=== PATIENT | female | born 1940 | race Caucasian/White ===

== ENCOUNTER 2023-08-22 17:20 | Emergency (ER) | payer OTHER, SELFPAY ==
[2023-08-22 17:22] VITALS: BP 191/62
[2023-08-22 17:40] VITALS: BP 191/62
--- NOTE | 2023-08-22 17:40 | ED.GENMED ---
History of Present Illness
General
Chief Complaint: Weakness
Time Seen by Provider: 08/22/23 17:40
Travel History
Have you had any contact with someone who has COVID-19?: No
Do you have any symptoms of coronavirus? Fever > 100 degrees, chills, cough, shortness of breath, sore throat, loss of taste or smell, muscle aches, or headache?: No
History of Present Illness
History of Present Illness:
83-year-old female with history of insulin-dependent diabetes, COPD, CHF, hypertension, hyperlipidemia, and chronic kidney disease presents to the emergency department for evaluation of leg weakness ongoing for the past 7 days. She also notes
diarrhea and malaise beginning yesterday. Denies any bloody diarrhea or vomiting. She states the leg symptoms are comparable to when she had statin induced myopathy several years ago, states she was unaware that her primary care physician placed
her back on a statin medication, she discontinued taking this 4 days ago. No ill contacts. Denies chest pain or dyspnea
Past History
Past History
ED Past Medical History: CAD, COPD, CVA, IDDM, Valvular disease, Hypothyroidism and Other (Giant cell arteritis)
ED Past Surgical History: Appendectomy and Cholecystectomy
Review of Systems
Review of Systems
Allergies reviewed?: Yes
All Other Systems: ROS reviewed and negative except as documented in HPI and ROS
Phy Exam
Physical Exam
Physical Exam:
GEN: Well appearing, NAD, WDWN
Eyes: PERRLA, EOMs intact, no scleral icterus
HENT: NCAT, oral mucosa moist
Lungs: CTAB, no wheezes, rales, rhonchi, normal chest wall excursion
Cardiac: RRR, no M/R/G, no peripheral edema. Radial pulses 2+ bilat
Abdomen: S, NT, ND, NABS, no masses or hepatosplenomegaly
Neuro: AO x 3, bilateral lower extremity strength is 5 out of 5 in all dougherty
MSK: No gross deformity or ecchymosis. No edema. No digital clubbing. Bilateral lower extremity compartments are soft diffusely, no pain with passive stretching at the ankles bilaterally, no muscular rigidity noted
Skin: No rashes, petechiae. Normal color, no pallor or jaundice.
Psych: Calm, cooperative, proper hygiene
Course
Orders/Labs/Results
Orders:
Orders
08/22/23 17:28
Electrocardiogram (*1) Urgent
Reason for Study: Other
Other Reason for Exam: Possible Sepsis
Cardiac Monitoring- Treatment ONCE
EKG- Treatment ONCE
IV Insert/Care/Rem.- Treatment PRN
O2 Therapy [RESP] Urgent
Titrate/Wean O2 to maintain O2 sat greater than (%): 93
Special Instructions: TO MAINTAIN CONTINUOUS O2 SATS > OR = 93%
Pulse Ox/cont/shift [RESP] Urgent
Quantity: 1
Special Instructions: CONTINUOUS
08/22/23 17:54
CPK [Creatine Phosphokinase] Urgent
Complete Blood Count/With Diff Urgent
Comprehensive Metabolic Panel Urgent
Lactic Acid Q4H
Comment: ON ICE, CANCEL 2ND ORDER IF FIRST LACTIC ACID LEVEL <2
Blood Culture Q30M
MARGARITO Source: Blood/Venous
Specimen Description:
Comment: FROM 2 SEPARATE SITES
08/22/23 18:13
Blood Culture Q30M
MARGARITO Source: Blood/Venous
Specimen Description:
Comment: FROM 2 SEPARATE SITES
08/22/23 18:35
0.9% Sodium Chloride 1000 ml [Nss] 1,000 ml IV BOLUS
08/22/23 18:47
COVID-19 Antigen Urgent
Source: Nasal Swab
Influenza A+B Rapid Molecular Urgent
MARGARITO Source: Nasal Swab
Specimen Description:
08/22/23 19:53
Urinalysis Reflex To Culture Urgent
Date Specimen was Collected: 08/22/23
Time Specimen was Collected: 19:48
Urine Microscopic Reflex Cult Urgent
Urine Culture Urgent
MARGARITO Source: U
Specimen Description:
Date Specimen was Collected: 08/22/23
Time Specimen was Collected: 19:48
Abnormal Lab Results
08/22/23 08/22/23
17:54 19:53
WBC 11.0 H 10^3/uL
(4.8-10.8)
RDW 15.1 H %
(11.5-14.5)
Abs Immat Gran (auto) 0.1 H 10^3/uL
(0-0.05)
Absolute Neuts (auto) 8.9 H 10^3/uL
(1.4-6.5)
Absolute Lymphs (auto) 1.1 L 10^3/uL
(1.2-3.4)
Absolute Monos (auto) 0.8 H 10^3/uL
(0.1-0.6)
Immature Gran % 0.7 H %
(0-0.5)
Neutrophils % 81.2 H %
(42.2-75.2)
Lymphocytes % 10.1 L %
(20.5-51.1)
Sodium 133 L mmol/L
(135-145)
Carbon Dioxide 20 L mmol/L
(22-30)
BUN 23 H mg/dl
(7-17)
Creatinine 1.8 H mg/dL
(0.6-1.0)
Glucose 245 H mg/dl
(70-99)
Ur Occult Blood Reflex Trace A
(Negative)
Leukocyte Esterase Rfl 1+ A
(Negative)
Urine Bacteria (Reflex) Few A
(Negative)
Urine Glucose 2+ A
(Negative)
08/22/23 17:54
08/22/23 17:54
Vital Signs
Initial and Last Documented VS:
Initial Vital Signs
Temp Pulse Resp BP Pulse Ox
100.5 F H 106 15 191/62 100
08/22/23 17:22 08/22/23 17:22 08/22/23 17:22 08/22/23 17:22 08/22/23 17:22
Last Documented Vital Signs
Temp Pulse Resp BP Pulse Ox
100.5 F H 93 16 169/74 99
08/22/23 17:22 08/22/23 19:30 08/22/23 19:30 08/22/23 19:00 08/22/23 19:30
MDM/Problems Addressed
MDM/Problems Addressed:
No evidence for steroid myopathy given normal CK levels. Labs are otherwise reassuring. No evidence for UTI. Patient's exam is reassuring. She was offered admission for observation due to leg weakness however she would prefer discharge home
which is not unreasonable given medical stability at this time. Discussed supportive care for diarrhea and return parameters
*Critical Care Note
Total Time (30-74mins, 75-104mins- exclusive of procedures): Not Applicable
ED Attending Note
-
Portions of this chart may have been created with voice recognition software.� Occasional wrong word or��sound alike� substitutions may have occurred due to the inherent limitations of voice recognition software.
Discharge Plan
Departure
Patient Disposition: Home (Routine Discharge)
Date of Disposition: 08/22/23
Time of Disposition: 20:12
Patient with high blood pressure during this ER visit?: No
Discharge Problem:
Diarrhea, Leg weakness
Instructions: Generalized Weakness (DC), Acute Diarrhea
Prescriptions:
No Action
clopidogrel 75 mg Tablet
75 mg PO DAILY
aspirin 81 mg Tablet,Delayed Release (Dr/Ec)
81 mg PO DAILY
levothyroxine [Synthroid] 75 mcg Tablet
75 mcg PO MOTUWETHFRSA
melatonin 5 mg Tablet
5 mg PO HS PRN (Reason: sleep)
sodium bicarbonate 650 mg Tablet
650 mg PO BID Qty: 60 0RF
levothyroxine 75 mcg tablet
112.5 mcg PO ANTUNEZ
gabapentin 100 mg capsule
200 mg PO TID
timolol maleate 0.5 % drops
1 drp RIGHT EYE BID
calcitriol 0.25 mcg capsule
0.25 mcg PO Q48H
dorzolamide 2 % drops
1 drp LEFT EYE BID
insulin glargine [Lantus Solostar U-100 Insulin] 100 unit/mL (3 mL) insulin pen
4 unit SC HS
Livalo 1 mg tablet
1 mg PO Q48H
bupropion HCl 150 mg Tablet Extended Release 24 Hr
150 mg PO Q2D 14 Days Qty: 7 0RF
Rx Instructions:
150 mg every other day for 2 weeks and then stop!
midodrine 5 mg Tablet
2.5 mg PO TID@0800,1300,1800 Qty: 90 0RF
cyanocobalamin (vitamin B-12) 1,000 mcg Tablet
1,000 mcg PO DAILY Qty: 30 0RF
hydralazine 25 mg Tablet
25 mg PO BID Qty: 60 0RF
amlodipine 5 mg Tablet
5 mg PO BID Qty: 60 0RF
insulin aspart U-100 [Novolog U-100 Insulin aspart] 100 unit/mL Solution
4 unit SC DIRECTED Qty: 0 0RF
furosemide [Lasix] 20 mg Tablet
20 mg PO Q48H PRN (Reason: Fluid retention/Swelling) Qty: 0 0RF
Rx Instructions:
weight gain > 3 pound a day
Referrals:
Nolan Pinedo MD [Family Provider] -
Interventions
Interventions:
*General Assessment Last Done: 08/22/23 18:15
*Neglect/Abuse Screening Last Done: 08/22/23 18:15
ED- Fall Risk Assessment Last Done: 08/22/23 18:15
ED- Cardiac Assessment Last Done: 08/22/23 18:15
ED- Neurological Assessment Last Done: 08/22/23 18:15
ED- Pulmonary Assessment Last Done: 08/22/23 18:15
Discharge Date and Time
Print Language: SERBIAN
[2023-08-22 18:06] LABS: % Basophils 0.4 % (0-2); % Immature Granulocytes 0.7 % (0-0.5); % Lymphocytes 10.1 % (20.5-51.1); % Monocytes 7.6 % (1.7-9.3); % Neutrophils 81.2 % (42.2-75.2); Absolute Immature Granulocytes 0.1 10^3/uL (0-0.05); Absolute Lymphocytes 1.1 10^3/uL (1.2-3.4); Absolute Monocytes 0.8 10^3/uL (0.1-0.6); Absolute Neutrophils 8.9 10^3/uL (1.4-6.5); Hematocrit 37.3 % (37.0-47.0); Hemoglobin 12.8 g/dL (12.0-16.0); Mean Corp Hgb Conc. 34.3 g/dL (33.0-37.0); Mean Corpuscular Hgb 27.8 pg (27.0-31.0); Mean Corpuscular Volume 81.1 fL (81.0-99.0); Nucleated Red Blood Cells % 0 %; Platelet Count 198 10^3/uL (130-400); Red Cell Dist. Width 15.1 % (11.5-14.5)
[2023-08-22 18:12] VITALS: BP 150/76
[2023-08-22 18:21] LABS: ALT (SGPT) 24 U/L (0-35); AST (SGOT) 32 U/L (14-36); Albumin 4.4 g/dl (3.5-5.0); Alkaline Phosphatase 93 U/L (38-126); Blood Urea Nitrogen 23 mg/dl (7-17); Calcium 9.1 mg/dl (8.4-10.2); Carbon Dioxide 20 mmol/L (22-30); Chloride 101 mmol/L (98-107); Creatine Phosphokinase 52 U/L (30-135); Estimated Creatinine Clearance 19 ml/min; Glucose 245 mg/dl (70-99); Potassium 3.9 mmol/L (3.5-5.1); Sodium 133 mmol/L (135-145); Total Bilirubin 0.6 mg/dl (0.2-1.3); Total Protein 6.8 g/dl (6.3-8.2); eGFR 27.27
[2023-08-22 18:34] LABS: Lactic Acid 1.9 mmol/L (0.7-2.0)
[2023-08-22] MEDS: NSS 1000 IV (18:39)
[2023-08-22 19:00] VITALS: BP 169/74
[2023-08-22 19:08] LABS: COVID-19 Antigen Negative (Negative)
[2023-08-22 19:59] LABS: Urine Albumin Trace (Neg - Trace); Urine Bilirubin Negative (Negative); Urine Character Clear (Clear); Urine Color Straw; Urine Glucose 2+ (Negative); Urine Ketone Negative (Negative); Urine Leukocyte 1+ (Negative); Urine Nitrite Negative (Negative); Urine Occult Blood Trace (Negative); Urine Specific Gravity 1.005 (<1.030); Urine Urobilinogen Negative (Neg - 1+)
[2023-08-22 20:00] VITALS: BP 173/74
[2023-08-22 20:08] LABS: Urine Bacteria Few (Negative); Urine Squamous Cell 21-25 /LPF (Few)
[2023-08-22 20:09] LABS: Urine Red Blood Cell 0-2 /HPF (0-2)
== END 2023-08-22 20:55 | disposition home or self-care (01) ==
LOC: EMR 17:20
PROVIDERS: Physician Assistant; EMERGENCY PHYSICIAN Emergency Medicine; FAMILY PHYSICIAN Internal Medicine
DX: R19.7 Diarrhea, unspecified (principal); R53.1 Weakness; E11.22 Type 2 diabetes mellitus with diabetic chronic kidney disease; I50.9 Heart failure, unspecified; I13.0 Hypertensive heart and chronic kidney disease with heart failure and stage 1 through stage 4 chronic kidney disease, or unspecified chronic kidney disease; E78.5 Hyperlipidemia, unspecified
CPT/HCPCS: 99284; 80053; 81003; 81015; 82550; 83605; 85025; 87040; 87086; 87502; 87811; 93005

== ENCOUNTER 2023-10-24 13:50 | Emergency (ER) | payer OTHER, SELFPAY ==
[2023-10-24 13:52] VITALS: BP 170/93
--- NOTE | 2023-10-24 16:13 | ED.GENMED ---
History of Present Illness
General
Chief Complaint: Skin Surface Trauma
Source: patient
Time Seen by Provider: 10/24/23 15:08
History of Present Illness
History of Present Illness:
83yoF with a history of coronary artery disease on Plavix and aspirin presenting with her daughter for a wound check. Patient was scratched by her kitten yesterday causing a laceration to the right lower leg. The area started bleeding this morning
so she went to urgent care. The wound was dressed, Tdap was updated, and she was started on antibiotics. The bleeding recurred after she was discharged and urgent care told her to go to the ED for evaluation. She has no other complaints.
Past History
Past History
ED Past Medical History: CAD, COPD, CVA, IDDM, Valvular disease, Hypothyroidism and Other (Giant cell arteritis)
ED Past Surgical History: Appendectomy and Cholecystectomy
Phy Exam
General Physical Exam
General Presentation: well appearing and no apparent distress
General age: appears stated age
General Skin: warm and dry
General Habitus: elderly
Skin Exam
Skin Exam: normal color, warm/dry and other (3cm laceration present to R lower leg. Avulsed skin noted at lateral aspect of laceration with a small area of venous oozing. )
Course
Vital Signs
Initial and Last Documented VS:
Initial Vital Signs
Temp Pulse Resp BP Pulse Ox
98.1 F 95 18 170/93 100
10/24/23 13:52 10/24/23 13:52 10/24/23 13:52 10/24/23 13:52 10/24/23 13:52
Last Documented Vital Signs
Temp Pulse Resp BP Pulse Ox
98.1 F 95 18 170/93 100
10/24/23 13:52 10/24/23 13:52 10/24/23 13:52 10/24/23 13:52 10/24/23 13:52
MDM/Problems Addressed
Differential Diagnosis Includes:
83yoF here with bleeding from a R lower leg wound. Wound sustained yesterday after her cat scratched her. Seen at urgent care earlier today but bleeding persists. Currently on aspirin and Plavix. Small amount of venous oozing noted on exam.
*Critical Care Note
Total Time (30-74mins, 75-104mins- exclusive of procedures): Not Applicable
Update Note
Update Note:
Silver nitrate applied to small area of bleeding. Bleeding decreased by still present. 2cc of lidocaine with epinephrine injected and Surgicel applied. Patient observed for 1 hour without any additional bleeding. Patient stable for discharge. Coban
wrap applied and home wound care discussed. Advised f/u with PCP and ED return precautions discussed. She was discharged in stable condition.
ED Attending Note
-
Portions of this chart may have been created with voice recognition software.� Occasional wrong word or��sound alike� substitutions may have occurred due to the inherent limitations of voice recognition software.
Discharge Plan
Departure
Patient Disposition: Home (Routine Discharge)
Date of Disposition: 10/24/23
Time of Disposition: 16:15
Patient with high blood pressure during this ER visit?: Yes
Discharge Problem:
Bleeding from wound, Cat scratch of right lower leg
Prescriptions:
No Action
clopidogrel 75 mg Tablet
75 mg PO DAILY
aspirin 81 mg Tablet,Delayed Release (Dr/Ec)
81 mg PO DAILY
levothyroxine [Synthroid] 75 mcg Tablet
75 mcg PO MOTUWETHFRSA
melatonin 5 mg Tablet
5 mg PO HS PRN (Reason: sleep)
sodium bicarbonate 650 mg Tablet
650 mg PO BID Qty: 60 0RF
levothyroxine 75 mcg tablet
112.5 mcg PO ANTUNEZ
gabapentin 100 mg capsule
200 mg PO TID
timolol maleate 0.5 % drops
1 drp RIGHT EYE BID
calcitriol 0.25 mcg capsule
0.25 mcg PO Q48H
dorzolamide 2 % drops
1 drp LEFT EYE BID
insulin glargine [Lantus Solostar U-100 Insulin] 100 unit/mL (3 mL) insulin pen
4 unit SC HS
Livalo 1 mg tablet
1 mg PO Q48H
bupropion HCl 150 mg Tablet Extended Release 24 Hr
150 mg PO Q2D 14 Days Qty: 7 0RF
Rx Instructions:
150 mg every other day for 2 weeks and then stop!
midodrine 5 mg Tablet
2.5 mg PO TID@0800,1300,1800 Qty: 90 0RF
cyanocobalamin (vitamin B-12) 1,000 mcg Tablet
1,000 mcg PO DAILY Qty: 30 0RF
hydralazine 25 mg Tablet
25 mg PO BID Qty: 60 0RF
amlodipine 5 mg Tablet
5 mg PO BID Qty: 60 0RF
insulin aspart U-100 [Novolog U-100 Insulin aspart] 100 unit/mL Solution
4 unit SC DIRECTED Qty: 0 0RF
furosemide [Lasix] 20 mg Tablet
20 mg PO Q48H PRN (Reason: Fluid retention/Swelling) Qty: 0 0RF
Rx Instructions:
weight gain > 3 pound a day
Referrals:
Nolan Pinedo MD [Family Provider] -
Activity Restrictions/Additional Instructions:
Leave dressing in place for 24 hours. Change dressings daily after this.
Please follow-up with your family doctor. Return to the ER with any recurrent bleeding or signs of infection.
Interventions
Interventions:
*Risk Screen - Suicide Last Done: 10/24/23 13:52
*General Assessment Last Done: 10/24/23 13:52
*Neglect/Abuse Screening Last Done: 10/24/23 13:52
ED- Fall Risk Assessment Last Done: 10/24/23 14:45
*ED COVID-19 Vaccine History Last Done: 10/24/23 14:44
*Nursing Disposition Last Done: 10/24/23 16:38
ED-Skin Assessment Last Done: 10/24/23 14:44
Discharge Date and Time
Discharge Date/Time: 10/24/23 16:38
Print Language: IRISH
== END 2023-10-24 16:38 | disposition home or self-care (01) ==
LOC: EMR 13:50
PROVIDERS: EMERGENCY PHYSICIAN Emergency Medicine; FAMILY PHYSICIAN Internal Medicine
DX: S81.811A Laceration without foreign body, right lower leg, initial encounter (principal); W55.03XA Scratched by cat, initial encounter; I25.10 Atherosclerotic heart disease of native coronary artery without angina pectoris; J44.9 Chronic obstructive pulmonary disease, unspecified; E11.9 Type 2 diabetes mellitus without complications; E03.9 Hypothyroidism, unspecified; I38 Endocarditis, valve unspecified; M31.6 Other giant cell arteritis; Z79.02 Long term (current) use of antithrombotics/antiplatelets; Z86.73 Personal history of transient ischemic attack (TIA), and cerebral infarction without residual deficits; Z90.49 Acquired absence of other specified parts of digestive tract
CPT/HCPCS: 99282

== ENCOUNTER 2024-12-21 08:59 | Inpatient (IN) | payer OTHER, SELFPAY ==
[2024-12-19 18:04] VITALS: BP 158/62
[2024-12-19 18:21] LABS: Hematocrit 32.5 % (37.0-47.0); Hemoglobin 10.5 g/dL (12.0-16.0); Mean Corp Hgb Conc. 32.3 g/dL (33.0-37.0); Mean Corpuscular Volume 86.7 fL (81.0-99.0); Nucleated Red Blood Cells % 0 %; Platelet Count 198 10^3/uL (130-400); Red Cell Dist. Width 14.7 % (11.5-14.5)
[2024-12-19 18:28] LABS: INR 1.05; PT 14.0 Sec (11.4-14.6)
[2024-12-19 18:41] LABS: ALT (SGPT) 19 U/L (0-35); AST (SGOT) 27 U/L (14-36); Albumin 3.9 g/dl (3.5-5.0); Alkaline Phosphatase 60 U/L (38-126); Blood Urea Nitrogen 42 mg/dl (7-17); Calcium 10.0 mg/dl (8.4-10.2); Carbon Dioxide 29 mmol/L (22-30); Chloride 103 mmol/L (98-107); Glucose 143 mg/dl (70-99); Potassium 3.5 mmol/L (3.5-5.1); Sodium 137 mmol/L (135-145); Total Protein 5.9 g/dl (6.3-8.2); eGFR 25.40
[2024-12-19 18:43] LABS: Troponin I < 0.012 ng/ml
[2024-12-19 21:55] VITALS: BP 160/72
[2024-12-19 22:49] VITALS: BP 184/76
[2024-12-19 22:51] VITALS: BMI 20.9
[2024-12-19 23:00] VITALS: BP 185/90
[2024-12-19 23:52] VITALS: BP 138/64; BP 156/81; BP 171/62; PULSE 65; PULSE 69; PULSE 71
[2024-12-20] VITALS (56 sets, daily range): BP systolic 97–197; BP diastolic 44–144; PULSE 66–68; O2SAT 96; BMI 18.5
--- NOTE | 2024-12-20 00:33 | ED.GENMED ---
History of Present Illness
<Joanne Eduardo PA-C - Last Filed: 12/20/24 07:28>
General
Chief Complaint: Weakness
Source: patient
Exam Limitations: none
Time Seen by Provider: 12/19/24 23:07
Nursing documentation reviewed up to this point in time: agreed with
History of Present Illness
History of Present Illness:
84-year-old female with a past medical history of COPD, CHF, CAD, hypertension, insulin-dependent diabetes, who presents emergency department today with concerns of increasing weakness, and heaviness in her chest. The chest heaviness started this
past morning upon wakening. She reports that the chest pain has been constant. Substernal. Does not radiate through the back or to the jaw or arms. She does not recall having similar chest pain in the past. Does not feel like [place]. She does have
stents in her heart. She follows with Dr. Osvaldo Byrd for cardiology. She also complains of generalized weakness with ambulation. She reports that when she walks, she feels increasing pain in her legs when she walks and feels like her legs will
give out and she will fall. She has similar scenario when she had statin myopathy however she is no longer on statins. At rest, she has no pain in her extremities. She lives alone and has to climb 6 stairs in her home which she feels increased
weak doing. She reports that she has not been climbing the stairs or walking much and has been only getting up from the couch to eat peanut butter crackers. She denies abdominal pain. She denies any nausea or vomiting. She denies any syncopal
episodes. She does have a history of frequent falls and ambulatory dysfunction. Cane and a walker but has not been using it recently. Did speak with daughter who states that she was struggling to walk today and was difficult to get her to get
into the car. Really she denies any swelling in her lower extremities.
Past History
<Joanne Eduardo PA-C - Last Filed: 12/20/24 07:28>
Past History
ED Past Medical History: CAD, COPD, CVA, IDDM, Valvular disease, Hypothyroidism and Other (Giant cell arteritis)
ED Past Surgical History: Appendectomy and Cholecystectomy
Review of Systems
<Joanne Eduardo PA-C - Last Filed: 12/20/24 07:28>
Review of Systems
All Other Systems: ROS reviewed and negative except as documented in HPI and ROS
Phy Exam
<Joanne Eduardo PA-C - Last Filed: 12/20/24 07:28>
Physical Exam
Physical Exam:
General: Patient is well appearing and in no acute distress; non-toxic
Skin: Warm and dry, no rashes or lesions
Head: Normocephalic, atraumatic
Eyes: Sclera non-icteric. EOMs intact.
Cardiac: Regular rate and rhythm, no murmurs
Peripheral Vascular: No lower extremity swelling or edema
Pulm: Scattered crackles heard in lower bases otherwise normal respiratory effort
Abdomen: No abdominal tenderness to palpation
Neuro: CN II-XII intact, no focal neurologic deficits.
Psychiatric: Appropriate mood and affect.
Course
<Joanne Eduardo PA-C - Last Filed: 12/20/24 07:28>
Orders/Labs/Results
Orders:
Orders
12/19/24 17:56
Electrocardiogram (*1) Urgent
Reason for Study: Chest Pain
EKG- Treatment ONCE
12/19/24 18:10
Complete Blood Count/With Diff Urgent
Comprehensive Metabolic Panel Urgent
Creatine Phosphokinase Urgent
Prothrombin Time Urgent
Troponin I Urgent
12/19/24 23:43
Add On- LAB Urgent
Tests Added?: cpk
NT-proBNP Urgent
Troponin I Urgent
12/19/24 23:44
CR Chest - 2 Views Urgent
Comment:
Reason For Exam: weakness, chest pain
12/19/24 23:52
Orthostatic VS- Treatment ONCE
12/20/24 01:01
Aspirin 325 mg PO NOW STA
12/20/24 02:19
Furosemide [Lasix] 20 mg IV NOW STA
12/20/24 03:19
Admit/Transfer Patient As Directed
Co-Sign Provider:
Level of Care: Observation services
Assign to:: Telemetry
Physician / Group: Mercedes
Diagnosis: chest pain
Reason for Telemetry: Chest Pain syndromes
Date to Stop Telemetry: 12/22/24
Time to Stop Telemetry: 11:00
PRN Pain Medication Management As Directed
May give lesser potent ordered pain med per pt: Yes
preference::
Protocol:: Medication orders for pain may be administered in a
manner that supports deferring to patient preference
when the pt is:
- Requesting an ordered lesser potent pain medication.
Least to most potent pain medications are defined
as: acetaminophen < NSAID < tramadol < opioids
(morphine, oxycodone, hydromorphone).
- Requesting a lesser dose of the same medication IF
ORDERED.
- Requesting a less intrusive route of administration
if both routes are prescribed by the provider (PO <
IV).
12/20/24 03:20
Code Status As Directed
Resuscitation Status: Full Code
12/20/24 03:39
Acetaminophen [Tylenol] 650 mg PO Q6HPRN PRN
Nitroglycerin Sublingual [Nitrostat (Sublingual)] 0.4 mg SL [id number] PRN
12/20/24 03:39
Echo 2D MMode Color/Doppler Routine
Reason for Study: heart failure
CARDIOLOGY CONSULT Routine
Consulting Provider: Sumeet Castro
Was physician already notified: No
Reason for consult: angina vs chf exacerbation
Consult Notification Routine
Specialty to Notify: Cardiology
HF DIETARY CONSULT Routine
HF EDUCATOR CONSULT Routine
Comment:
Activity As Directed
Activity Level: With Assistance
Intake/ Output As Directed
Frequency: Per unit guidelines
Patient Education As Directed
Type: CHF folder
Comment: give on admission. Document in Interdisciplinary Education record
Sleep Apnea Assessment by RN As Directed
Comment:
Physician Instructions:
Vital Signs As Directed
Frequency: Other
Additional Instructions:: Q12 or per unit guidelines if more frequent.
Weight As Directed
Frequency: Daily
Type of Scale: Standing Scale
Comment: Daily morning weight. If unable to stand, use balanced bed scale.
Weight As Directed
Frequency: Once
Type of Scale: Standing Scale
Comment: Upon Admission. If unable to stand, use balanced bed scale.
Pulse Ox/cont/shift [RESP] Routine
Quantity: 1
Special Instructions: Daily pulse oximetry at rest. If greater than 92% at rest also obtain pulse oximetry
while ambulating as tolerated.
Pulse Ox/exercise [RESP] Routine
Quantity: 1
Pt Eval And Treat Routine
Activity Level: With Assistance
DX Deep Vein Thrombosis Video Routine
12/20/24 Breakfast
Cholesterol Lowering
At Your Request: Full Participation
Does patient need a safe tray?: No
Cholesterol Lowering: Sodium, 2 Gram
Levothyroxine [Synthroid] 75 mcg PO MoTuWeThFrSa@0600
12/20/24 06:47
TSH Reflex To Free T4 IN AM
Troponin I Q6H
Comment: at admission & every 6 hours x 2 (3 total), ECG to be done with each level
12/20/24 08:00
Amlodipine [Norvasc] 10 mg PO BID
Aspirin Low Dose EC [Aspir Low (Enteric Coated)] 81 mg PO DAILY
Atenolol [Tenormin] 25 mg PO DAILY
Budesonide/Formoterol 160/4.5 [Symbicort 160/4.5 Mcg Inhaler] 2 puff INH R BID
Clopidogrel Bisulfate [Plavix] 75 mg PO DAILY
Cyanocobalamin [Vitamin B-12] 1,000 mcg PO DAILY
Furosemide [Lasix] 20 mg IV BID AT 0800,1600
Heparin 5,000 units SC Q8
Sertraline HCl [Zoloft] 25 mg PO DAILY
Sodium Bicarbonate 650 mg PO BID
Timolol Maleate 0.5% [Timoptic 0.5% Ophthalmic Solution] 1 drop RIGHT EYE BID
12/20/24 12:00
Troponin I Q6H
Comment: at admission & every 6 hours x 2 (3 total), ECG to be done with each level
12/21/24 06:00
Basic Metabolic Panel IN AM
12/22/24 06:00
Basic Metabolic Panel IN AM
12/22/24 11:00
DC Protocol for Telemetry ONCE
12/25/24 06:00
Levothyroxine [Synthroid] 112.5 mcg PO ANTUNEZ@0600
Abnormal Lab Results
12/19/24
18:10
RBC 3.75 L 10^6/uL
(4.20-5.40)
Hgb 10.5 L g/dL
(12.0-16.0)
Hct 32.5 L %
(37.0-47.0)
MCHC 32.3 L g/dL
(33.0-37.0)
RDW 14.7 H %
(11.5-14.5)
MPV 10.8 H fL
(7.4-10.4)
Abs Immat Gran (auto) 0.1 H 10^3/uL
(0-0.05)
Absolute Monos (auto) 0.7 H 10^3/uL
(0.1-0.6)
Immature Gran % 0.8 H %
(0-0.5)
BUN 42 H mg/dl
(7-17)
Creatinine 1.9 H mg/dL
(0.6-1.0)
Glucose 143 H mg/dl
(70-99)
Total Protein 5.9 L g/dl
(6.3-8.2)
12/19/24 18:10
12/19/24 18:10
Vital Signs
Initial and Last Documented VS:
Initial Vital Signs
Temp Pulse Resp BP
98.3 F 65 18 158/62
12/19/24 18:04 12/19/24 18:04 12/19/24 18:04 12/19/24 18:04
Last Documented Vital Signs
Temp Pulse Resp BP Pulse Ox
98.3 F 64 17 152/91 95
12/19/24 18:04 12/20/24 06:45 12/20/24 06:45 12/20/24 06:01 12/20/24 06:45
<Zaira Mann, DO - Last Filed: 12/20/24 03:17>
Orders/Labs/Results
Orders:
Orders
12/19/24 17:56
Electrocardiogram (*1) Urgent
Reason for Study: Chest Pain
EKG- Treatment ONCE
12/19/24 18:10
Complete Blood Count/With Diff Urgent
Comprehensive Metabolic Panel Urgent
Creatine Phosphokinase Urgent
Prothrombin Time Urgent
Troponin I Urgent
12/19/24 23:43
Add On- LAB Urgent
Tests Added?: cpk
NT-proBNP Urgent
Troponin I Urgent
12/19/24 23:44
CR Chest - 2 Views Urgent
Comment:
Reason For Exam: weakness, chest pain
12/19/24 23:52
Orthostatic VS- Treatment ONCE
12/20/24 01:01
Aspirin 325 mg PO NOW STA
12/20/24 02:19
Furosemide [Lasix] 20 mg IV NOW STA
12/20/24 03:19
Admit/Transfer Patient As Directed
Co-Sign Provider:
Level of Care: Observation services
Assign to:: Telemetry
Physician / Group: Mercedes
Diagnosis: chest pain
Reason for Telemetry: Chest Pain syndromes
Date to Stop Telemetry: 12/22/24
Time to Stop Telemetry: 11:00
PRN Pain Medication Management As Directed
May give lesser potent ordered pain med per pt: Yes
preference::
Protocol:: Medication orders for pain may be administered in a
manner that supports deferring to patient preference
when the pt is:
- Requesting an ordered lesser potent pain medication.
Least to most potent pain medications are defined
as: acetaminophen < NSAID < tramadol < opioids
(morphine, oxycodone, hydromorphone).
- Requesting a lesser dose of the same medication IF
ORDERED.
- Requesting a less intrusive route of administration
if both routes are prescribed by the provider (PO <
IV).
12/20/24 03:20
Code Status As Directed
Resuscitation Status: Full Code
12/20/24 03:39
Acetaminophen [Tylenol] 650 mg PO Q6HPRN PRN
Nitroglycerin Sublingual [Nitrostat (Sublingual)] 0.4 mg SL [id number] PRN
12/20/24 03:39
Echo 2D MMode Color/Doppler Routine
Reason for Study: heart failure
CARDIOLOGY CONSULT Routine
Consulting Provider: Sumeet Castro
Was physician already notified: No
Reason for consult: angina vs chf exacerbation
Consult Notification Routine
Specialty to Notify: Cardiology
HF DIETARY CONSULT Routine
HF EDUCATOR CONSULT Routine
Comment:
Activity As Directed
Activity Level: With Assistance
Intake/ Output As Directed
Frequency: Per unit guidelines
Patient Education As Directed
Type: CHF folder
Comment: give on admission. Document in Interdisciplinary Education record
Sleep Apnea Assessment by RN As Directed
Comment:
Physician Instructions:
Vital Signs As Directed
Frequency: Other
Additional Instructions:: Q12 or per unit guidelines if more frequent.
Weight As Directed
Frequency: Daily
Type of Scale: Standing Scale
Comment: Daily morning weight. If unable to stand, use balanced bed scale.
Weight As Directed
Frequency: Once
Type of Scale: Standing Scale
Comment: Upon Admission. If unable to stand, use balanced bed scale.
Pulse Ox/cont/shift [RESP] Routine
Quantity: 1
Special Instructions: Daily pulse oximetry at rest. If greater than 92% at rest also obtain pulse oximetry
while ambulating as tolerated.
Pulse Ox/exercise [RESP] Routine
Quantity: 1
Pt Eval And Treat Routine
Activity Level: With Assistance
DX Deep Vein Thrombosis Video Routine
12/20/24 Breakfast
Cholesterol Lowering
At Your Request: Full Participation
Does patient need a safe tray?: No
Cholesterol Lowering: Sodium, 2 Gram
Levothyroxine [Synthroid] 75 mcg PO MoTuWeThFrSa@0600
12/20/24 06:47
TSH Reflex To Free T4 IN AM
Troponin I Q6H
Comment: at admission & every 6 hours x 2 (3 total), ECG to be done with each level
12/20/24 08:00
Amlodipine [Norvasc] 10 mg PO BID
Aspirin Low Dose EC [Aspir Low (Enteric Coated)] 81 mg PO DAILY
Atenolol [Tenormin] 25 mg PO DAILY
Budesonide/Formoterol 160/4.5 [Symbicort 160/4.5 Mcg Inhaler] 2 puff INH R BID
Clopidogrel Bisulfate [Plavix] 75 mg PO DAILY
Cyanocobalamin [Vitamin B-12] 1,000 mcg PO DAILY
Furosemide [Lasix] 20 mg IV BID AT 0800,1600
Heparin 5,000 units SC Q8
Sertraline HCl [Zoloft] 25 mg PO DAILY
Sodium Bicarbonate 650 mg PO BID
Timolol Maleate 0.5% [Timoptic 0.5% Ophthalmic Solution] 1 drop RIGHT EYE BID
12/20/24 12:00
Troponin I Q6H
Comment: at admission & every 6 hours x 2 (3 total), ECG to be done with each level
12/21/24 06:00
Basic Metabolic Panel IN AM
12/22/24 06:00
Basic Metabolic Panel IN AM
12/22/24 11:00
DC Protocol for Telemetry ONCE
12/25/24 06:00
Levothyroxine [Synthroid] 112.5 mcg PO ANTUNEZ@0600
Abnormal Lab Results
12/19/24
18:10
RBC 3.75 L 10^6/uL
(4.20-5.40)
Hgb 10.5 L g/dL
(12.0-16.0)
Hct 32.5 L %
(37.0-47.0)
MCHC 32.3 L g/dL
(33.0-37.0)
RDW 14.7 H %
(11.5-14.5)
MPV 10.8 H fL
(7.4-10.4)
Abs Immat Gran (auto) 0.1 H 10^3/uL
(0-0.05)
Absolute Monos (auto) 0.7 H 10^3/uL
(0.1-0.6)
Immature Gran % 0.8 H %
(0-0.5)
BUN 42 H mg/dl
(7-17)
Creatinine 1.9 H mg/dL
(0.6-1.0)
Glucose 143 H mg/dl
(70-99)
Total Protein 5.9 L g/dl
(6.3-8.2)
12/19/24 18:10
12/19/24 18:10
Vital Signs
Initial and Last Documented VS:
Initial Vital Signs
Temp Pulse Resp BP
98.3 F 65 18 158/62
12/19/24 18:04 12/19/24 18:04 12/19/24 18:04 12/19/24 18:04
Last Documented Vital Signs
Temp Pulse Resp BP Pulse Ox
98.3 F 64 17 152/91 95
12/19/24 18:04 12/20/24 06:45 12/20/24 06:45 12/20/24 06:01 12/20/24 06:45
<Joanne Eduardo PA-C - Last Filed: 12/20/24 07:28>
MDM/Problems Addressed
Differential Diagnosis Includes:
Differentials include acute CHF exacerbation, ACS, GERD, costochondritis, myocarditis, COPD
MDM/Problems Addressed:
84-year-old female with a past medical history of COPD, CHF, CAD, hypertension, insulin-dependent diabetes, who presents emergency department today with concerns of increasing weakness, and heaviness in her chest. The chest heaviness started this
past morning upon wakening. She reports that the chest pain has been constant. Substernal. It did start to improve while she was here but returned with exertion. He has increasing weakness as well. She did ambulate with nursing staff and they
reported that she had hard time ambulating without significant weakness and without significant aid. BNP is elevated from baseline, chest x-ray shows no acute pulm pulmonary process. Suspect symptoms related to acute CHF exacerbation. Discussed
case with ED attending. Significant ambulatory dysfunction is also concern and patient lives alone and will likely need transfer to a SNF or rehab. Patient referred for admission.
Chronic conditions affecting care:
CAD, COPD, diabetes, hypothyroidism
<Joanne Eduardo PA-C - Last Filed: 12/20/24 07:28>
*Pulse Oximetry
SaO2: 98
Oxygen Mode of Delivery: Room air
Patient hypoxic: no
*Critical Care Note
Total Time (30-74mins, 75-104mins- exclusive of procedures): Not Applicable
Data Reviewed
Review of Other/Old Records Reveals: Records (Reviewed ER physician documentation from 10/24/2023 patient seen for wound check following a laceration from her kitten) and Discharge Summary (Reviewed discharge summary from 06/23/2022 patient seen for
weakness secondary to recurrent falls and orthostatic hypotension)
Source: patient and records
<Joanne Eduardo PA-C - Last Filed: 12/20/24 07:28>
Update Note
Update Note:
Update
1:38 AM--Patient reports that the chest pain went away, returned when she went to x-ray, and now it is intermittent but starting to feel better
ED Attending Note
<Joanne Eduardo PA-C - Last Filed: 12/20/24 07:28>
-
Portions of this chart may have been created with voice recognition software.� Occasional wrong word or��sound alike� substitutions may have occurred due to the inherent limitations of voice recognition software.
<Zaira Mann DO - Last Filed: 12/20/24 03:17>
ED Attending Note
Patient seen and examined by attending physician: Yes
I performed a history and physical exam of patient and discussed management with resident, I reviewed resident's note and agree with documented findings and plan of care.: Yes
ED Attending Note:
84-year-old woman with history of CAD, CHF, hypertension, hyperlipidemia, prior [place], insulin requiring diabetes, chronic kidney disease, hypothyroidism. She resides at home independently. She presents to the ED with her daughter with complaints of
2-day history of exertional chest pressure accompanied with weakness and shortness of breath. No recent falls.
84-year-old woman appears her stated age, awake and alert, pleasant, appears in no acute distress. Daughter is accompanying.
Heart is regular rate and rhythm.
Lungs have bibasilar rales. No respiratory distress.
EKG is similar and unchanged from previous.
Labs are remarkable for mild but stable anemia. Chronic kidney disease with creatinine of 1.9, improved from previous.
Troponin is negative.
BNP is moderately elevated 6400 which has trended up significantly from previous result 2022.
Chest x-ray concerning for very mild cephalization as well as mild cardiomegaly which is new compared to previous film.
Attempted to ambulate patient she immediately developed chest pressure, generalized weakness.
Orthostatics are negative.
Significant concern for acute CHF, concern for ACS.
Will give an IV dose of Lasix and admit to hospitalist service.
Discharge Plan
Departure
Patient Disposition: Admit
Date of Disposition: 12/20/24
Time of Disposition: 02:33
Admit to: Med/Surg
Presentation/result/management discussed w/ accepting MD/DO: Hospitalist
Patient with high blood pressure during this ER visit?: Yes
Condition: Fair
Discharge Problem:
Acute exacerbation of chronic heart failure, Ambulatory dysfunction
Interventions
Interventions:
*Risk Screen - Suicide Last Done: 12/19/24 18:04
ED- Cardiac Assessment Last Done: 12/20/24 01:11
ED- Neurological Assessment Last Done: 12/20/24 01:11
ED- Pulmonary Assessment Last Done: 12/20/24 01:11
[2024-12-20] MEDS: ASPIRIN 325 MG PO (01:48)
[2024-12-20 01:59] LABS: Troponin I 0.012 ng/ml
[2024-12-20] MEDS: LASIX 20 MG IV ×3 (02:38→17:07)
--- NOTE | 2024-12-20 02:59 | HPS.HSE ---
Family Physician
-
Family Physician: Nolan Pinedo MD
Chief Complaint
-
Chest pressure
History of Present Illness
This is an 84-year-old female with past medical history significant for CAD status post tenting, COPD not on home O2, CHF with preserved EF, hypothyroid, hypertension, CKD stage IV prior insulin-dependent diabetes, history of temporal arthritis,
presenting to the emergency department with episode of chest pain throughout the day and recent episodes of weakness.
Patient reports that she has had 1 day of exertional dyspnea. Anytime she gets up to walk across the room such as using the commode or changing positions she feels pressure in her chest that she describes as an elephant sitting on her chest. She
states it sometimes radiates to her shoulders and neck more on the the right side. The symptoms improve once she is resting again. She cannot identify exactly how long it lasts when she stops resting. She states that she has been having some
dependent edema but denies any orthopnea or PND. She denies having any chest pain at rest. She reports history of PVCs for which she is taking atenolol and denies any recent episodes of palpitations. She has been compliant with Plavix and
aspirin. She denies having any cough fevers or chills.
In the emergency department she was afebrile, blood pressure was 173/51 with a pulse rate of 61 and satting 98% on room air.
ECG shows sinus bradycardia rate of 58 with occasional PVCs and no acute ischemic changes. Troponin was 0.012. BNP was 6400. Chest x-ray shows a trace left pleural effusion.
CBC was unremarkable. Hemoglobin was 10.5. Electrolytes were stable. BUN and creatinine were 42 and 1.9 unchanged from prior.
Medical History
Past Medical History
Past Medical History: Reports Other
Additional Past Medical History:
Coronary Artery Disease
Chronic Heart Failure
Essential Hypertension
Hyperlipidemia
Diabetes Mellitus, Type II
Diabetic Neuropathy
CKD Stage IV
Hypothyroidism
COPD
Anxiety/Depression
Glaucoma
Hx Giant Cell Arteritis
HX CVA
Past Surgical History: Reports Other
Additional Past Surgical History:
Appendectomy
Cholecystectomy
Bilateral Cataracts
Back Surgery
Left Arm Bypass
Social History
Tobacco: Former Smoker
Alcohol: None
Drug: None
Living: Alone
Family History
Family History: Not pertinent
Allergies / Home Medications
Allergies reflects when Allergies were last updated in [employer].
Home Medications with original date entered in [employer]
Allergy/Medication List:
Allergies
Allergy/AdvReac Type Severity Reaction Status Date / Time
Penicillins Allergy Unknown Verified 12/19/24 18:04
rosuvastatin (From Crestor) AdvReac Severe Rhabdomyoly Verified 12/19/24 18:04
sis
Home Medications
aspirin 81 mg tablet,delayed release 81 mg PO DAILY Blood clot prevention/tx 02/10/22
clopidogrel 75 mg tablet 75 mg PO DAILY Blood clot prevention/tx 02/10/22
levothyroxine 75 mcg tablet (Synthroid) 75 mcg PO MOTUWETHFRSA Thyroid 02/10/22
sodium bicarbonate 650 mg tablet 650 mg PO BID #60 tabs 02/17/22
calcitriol 0.25 mcg capsule 0.25 mcg PO Q48H Supplement 06/19/22
levothyroxine 75 mcg tablet 112.5 mcg PO ANTUNEZ Thyroid 06/19/22
timolol maleate 0.5 % eye drops 1 drp RIGHT EYE BID Eye condition 06/19/22
cyanocobalamin (vitamin B-12) 1,000 mcg tablet 1,000 mcg PO DAILY #30 tabs 06/23/22
Tums 12/19/24
amlodipine 5 mg tablet 10 mg PO BID 12/19/24
atenolol 25 mg tablet 25 mg PO DAILY 12/19/24
denosumab 60 mg/mL subcutaneous syringe (Prolia) 60 mg SC [id number] 12/19/24
fluticasone furoate 200 mcg-vilanterol 25 mcg/dose inhalation powder (Breo Ellipta) 1 inh inhalation DAILY 12/19/24
insulin pump controller 12/19/24
sertraline 25 mg tablet (Zoloft) 25 mg PO DAILY 12/19/24
Review of Systems
-
Constitutional: Reports No Symptoms
EENT: Reports No Symptoms
Respiratory: Reports Trouble Breathing
Cardiac: Reports Chest Pain
Abdomen/GI: Reports No Symptoms
: Reports No Symptoms
Musculoskeletal: Reports No Symptoms
Skin: Reports No Symptoms
Neurological: Reports No Symptoms
Endocrine: Reports No Symptoms
Hematologic/Lymphatic: Reports No Symptoms
Psych: Reports No Symptoms
Physical Exam
Vital Signs
Vital Signs
Temp Pulse Resp BP Pulse Ox
98.3 F 61 18 173/58 99
12/19/24 18:04 12/20/24 02:38 12/20/24 02:00 12/20/24 02:38 12/20/24 02:00
Physical Exam
General: Well Developed, Well Nourished and Comfortable
HEENT: NormoCephalic, Moist mucous membranes and Atraumatic
Respiratory: Clear
Cardiac: S1/S2 and Regular Rhythm; No Murmur or Rub
GI: Soft, Non Tender, Non Distended and Normal Bowel Sounds; No Organomegaly
Rectal: Deferred by Provider
Musculoskeletal: No Clubbing, No Cyanosis, Edema, Left Lower Extremity (trace ankle edema) and Edema, Right Lower Extremity (trace ankle edema)
Skin: No Rash
Neuro: AO x 3 and Nonfocal/grossly intact
Psych: Calm
Laboratory Results
-
12/19/24 18:10
12/19/24 18:10
Laboratory Results
PT 14.0 Sec (11.4-14.6) 12/19/24 18:10
INR 1.05 12/19/24 18:10
Total Bilirubin 0.3 mg/dl (0.2-1.3) 12/19/24 18:10
AST 27 U/L (14-36) 12/19/24 18:10
ALT 19 U/L (0-35) 12/19/24 18:10
Alkaline Phosphatase 60 U/L (38-126) 12/19/24 18:10
Troponin I 0.012 ng/ml 12/20/24 00:58
Data Reviewed
-
Diagnostic Radiology: Image Personally Visualized and interpreted
Medical Tests (Nuc Med, Echo, EKG etc): Image Personally Visualized and interpreted
Lab Data: Labs Reviewed by me
Old Records: Reviewed
Impression/Plan
-
IMPRESSION:
This is a 84-year-old with past medical history significant for CAD he is status post tenting, hypothyroid, COPD not on home O2, previous history of diabetes now no longer on treatment, history of diastolic heart failure, CKD stage IV who presents
to the emergency department with approximately 1 day history of exertional dyspnea that she describes as elephant sitting on her chest anytime she walks around. Will be exertional angina runs well. She denies palpitations lightheadedness or
dizziness. She denies having any chest pain at rest. She reports dependent ankle edema only during the daytime. She has not had any acute weight gain. The amount of exertional discomfort as resulted in weakness. She has had a history of
generalized weakness in the past but this feels different. No signs of acute infection.
PLAN:
Exertional dyspnea/chest pain -1 day of worsening exertional symptoms suggestive of possibly crescendo angina. Can't move without discomfort/sob. Initial troponin is negative. ECG is nonischemic. X-ray with trace left-sided pleural effusion
only. BNP is elevated compared to prior at 6000
-Admit to telemetry
-Continue cycle cardiac enzymes
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
- no h/o pe and unlikely, will consider if hypoxic with ambulation
-Will continue with Lasix 20 mg IV daily as patient is retaining fluids at a secondary to CKD or cardiomyopathy
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
-Continue atenolol for now
- Cardiology consultation
- amb pulse ox
- pt consult
COPD -no hypoxia or hypercarbia. No increased work of breathing at rest. Lungs are clear
-Continue home inhalers with as needed albuterol
Hypothyroid
-Continue levothyroxine
CKD -
- stable creatinine continue bicarbonate twice daily for now
DVT PPX - heparin sq
Code status - Full code
[2024-12-20] MEDS: SYNTHROID 75 MCG PO (06:37)
[2024-12-20 07:31] LABS: Troponin I 0.016 ng/ml
[2024-12-20] MEDS: SYMBICORT 160/4.5 MCG INHALER INH (08:20)
--- NOTE | 2024-12-20 09:07 | CON.CAR ---
Addendum entered and electronically signed by Norm Landon MD 12/20/24 10:44:
I saw and examined the patient.
The RETREAD OPERATOR or PA's note was reviewed and I agree with the note.
Comment: General: Well developed, well nourished in NAD.
Neck: Supple, no JVD, HJR, carotids +2 B/L, no bruits bilaterally.
Heart: Non displaced PMI, RRR, no murmurs, No S3, S4, no rubs.
Lungs: Scattered rhonchi at the bases
Extremities: No clubbing, cyanosis or edema bilaterally.
Neuro: Grossly nonfocal, awake, alert and oriented x3.
Martha has a history of CAD status post LAD PCI 2021, hypertension, hyperlipidemia with statin intolerance and allergy to Repatha, PAD status post axillary brachial bypass in 2017, orthostasis, left pontine CVA. She is followed at [facility]. She
presents with chest discomfort. Of note she had a monitor in September 2024 which revealed extra beats and was started on metoprolol which she did not tolerate and then the dose was decreased and subsequently changed to atenolol. She has noted
increasing edema and weight gain of 8 pounds. She noted exertional chest discomfort and was brought to the ER. In ER troponin have been serially undetectable. proBNP is 4600.
Will treat with IV Lasix. Will get records from [facility]. No indication for cardiac catheterization given persistent chest pain and undetectable troponins with unremarkable ECG.
Original Note:
Consultation
Consultation Request
Date/Time Consultation Requested: 12/20/2024 at 0339
Date/Time Consultation Performed: 12/20/2024 at 0848
Requesting Provider: Dr. Avila
Performing Provider: Dr. Landon
Reason for Consultation: Chest pain and acute HF
Medical History
-
History of Present Illness:
Patient came to the ER very early this morning with chest pain that started on Thursday and is being admitted with acute HF in consultation to cardiology. Patient follows with a primary laborer [facility] out of [facility], she sees Dr. Osvaldo Byrd at [facility]
cardiology and was just in their office on 12/16/2024 for symptoms of PVCs and orthostasis. Patient has a history of CAD with LAD PCI in 2021 and remains on aspirin and Plavix. She also has PAD with a previous axillary brachial bypass in 2017.
Patient says that most recently she had a monitor after her visit with Dr. Byrd in September that showed extra beats and she was started on metoprolol which she did not tolerate and then the dose was decreased. When she saw the RETREAD OPERATOR Dr. Byrd's office on
12/16/2024 her metoprolol was changed to atenolol. Then starting on Thursday she noticed increased edema and weight gain, patient reports she is told to check her weight on a daily basis and call their office for weight gain of 5 pounds in a week
but she is not on a daily diuretic. Patient noted the weight gain, but did not call their office and then on Thursday she started with exertional chest pain, but denies any orthopnea. In the ER now her BNP is 4600 and all of her troponins are
undetectable. Patient reports symptomatic improvement with initial attempts at IV diuresis.
PMH:
CAD s/p LAD PCI 2021
HTN
Hyperlipidemia with statin intolerance and allergy to Repatha
PAD s/p axillary brachial bypass 2017
Orthostasis
h/o CVA to the left doris unknown date
Past Medical History
Past Medical History: Other
Past Surgical History: Cardiac (Axillary brachial bypass 2017, LAD PCI 2021)
Social History
Tobacco: Former Smoker
Alcohol: None
Drug: None
Personal:
Living: Alone
Family History
Family History: CAD and Other (Rheumatic fever)
Allergies / Home Medications
Allergy/AdvReac Type Severity Reaction Status Date / Time
Penicillins Allergy Unknown Verified 12/19/24 18:04
rosuvastatin (From Crestor) AdvReac Severe Rhabdomyoly Verified 12/19/24 18:04
sis
�Medication �Instructions �Recorded �Confirmed �Type
aspirin 81 mg tablet,delayed 81 mg PO DAILY Blood clot 02/10/22 12/19/24 History
release prevention/tx
clopidogrel 75 mg tablet 75 mg PO DAILY Blood clot 02/10/22 12/19/24 History
prevention/tx
levothyroxine 75 mcg tablet 75 mcg PO MOTUWETHFRSA Thyroid 02/10/22 12/19/24 History
(Synthroid)
sodium bicarbonate 650 mg tablet 650 mg PO BID #60 tabs 02/17/22 12/19/24 Rx
calcitriol 0.25 mcg capsule 0.25 mcg PO Q48H Supplement 06/19/22 12/19/24 History
levothyroxine 75 mcg tablet 112.5 mcg PO ANTUNEZ Thyroid 06/19/22 12/20/24 History
timolol maleate 0.5 % eye drops 1 drp RIGHT EYE BID Eye condition 06/19/22 12/19/24 History
cyanocobalamin (vitamin B-12) 1,000 mcg PO DAILY #30 tabs 06/23/22 12/19/24 Rx
1,000 mcg tablet
amlodipine 5 mg tablet 10 mg PO BID 12/19/24 12/19/24 History
atenolol 25 mg tablet 25 mg PO DAILY 12/19/24 12/19/24 History
denosumab 60 mg/mL subcutaneous 60 mg SC [id number] 12/19/24 12/19/24 History
syringe (Prolia)
fluticasone furoate 200 1 inh inhalation DAILY 12/19/24 12/19/24 History
mcg-vilanterol 25 mcg/dose
inhalation powder (Breo Ellipta)
sertraline 25 mg tablet (Zoloft) 25 mg PO DAILY 12/19/24 12/19/24 History
Review of Systems
-
History Source: Patient and Family (Daughter, Nohemi)
All other systems: Negative unless noted
Physical Exam
Vital Signs
Temp Pulse Resp BP Pulse Ox
98.3 F 68 16 165/60 97
12/19/24 18:04 09/16/25 08:30 12/20/24 08:30 12/20/24 07:00 12/20/24 08:30
GEN: NAD. AAOx3
HEENT: EOMI, MMM
LUNGS: RA. CTA B/L, no wheeze
CV: SR with frequent PVCs on tele. Reg with ectopy, S1/S2, 1/6 syst LSB
ABD: soft, BS+, NT, ND
EXT: Trace B/L LE edema
NEURO: Gross non-focal
SKIN: No rash
Lab Results
12/19/24 18:10
Troponin I 0.016 ng/ml D 12/20/24 06:47
Gus-P-Cumphvafjrp Pept 6430 pg/ml 12/20/24 00:58
Impression / Plan
-
PCP: Dr. Nolan Pinedo
Card: Dr. Osvaldo Byrd
Impression:
Admitted with chest pain and acute HF 12/20/2024
Chest pain
Acute HFpEF
CAD s/p LAD PCI 2021
HTN
Hyperlipidemia with statin intolerance and allergy to Repatha
PAD s/p axillary brachial bypass 2017
Orthostasis
h/o CVA to the left doris unknown date
CKD 4
Echo 05/16/2024: EF 55 to 60%, GLS -13.1%, trace MR, mild TR
Echo 12/20/2024: Report pending
Plan:
-Patient came to the ER very early this morning with chest pain that started on Thursday and is being admitted with acute HF in consultation to cardiology. Patient follows with a primary laborer [employer] out of [facility], she sees Dr. Osvaldo Byrd at [facility]
cardiology and was just in their office on 12/16/2024 for symptoms of PVCs and orthostasis. Patient has a history of CAD with LAD PCI in 2021 and remains on aspirin and Plavix. She also has PAD with a previous axillary brachial bypass in 2017.
Patient says that most recently she had a monitor after her visit with Dr. Byrd in September that showed extra beats and she was started on metoprolol which she did not tolerate and then the dose was decreased. When she saw the RETREAD OPERATOR Dr. Byrd's office on
12/16/2024 her metoprolol was changed to atenolol. Then starting on Thursday she noticed increased edema and weight gain, patient reports she is told to check her weight on a daily basis and call their office for weight gain of 5 pounds in a week
but she is not on a daily diuretic. Patient noted the weight gain, but did not call their office and then on Thursday she started with exertional chest pain, but denies any orthopnea. In the ER now her BNP is 4600 and all of her troponins are
undetectable. Patient reports symptomatic improvement with initial attempts at IV diuresis.
-ECG reviewed by me is SR with frequent PVCs. Telemetry also reviewed by me shows frequent PVCs at about every 3rd or 4th beat
-Patient being admitted with acute HFpEF, EF was preserved at 55 to 60% by echo with [facility] [employer] on 05/16/2024. Repeat echo already performed this morning and I await the results.
-Patient was given Lasix 20 mg IV x 1 in the ER with good urine output and is now ordered Lasix 20 mg IV BID. Patient was not taking a diuretic prior to admission.
-Patient reports a dry weight of 108 lbs.
-Patient saw her [facility] [employer] on 12/16/2024 and metoprolol was stopped in favor of atenolol to help control PVCs and to better manage her orthostasis. Atenolol 25 mg daily has been continued for now, pending EF on repeat echo we may need to
consider switching to a cardioselective BB.
-Patient is not chronically on BRYCE/ARB/aldosterone antagonist. Patient with CKD 4 and orthostasis limiting GDMT.
-Patient is a candidate for SGLT2 inhibitor, will ask case management to check on cost of Farxiga 10 mg daily.
-Cre on admission is 1.9, it was up to 1.8 back on 08/22/2023 and on labs going further back to 2021 it was 3.3. Will follow Cre on a daily basis with diuresis.
-Patient complained of chest pain on admission since Thursday, troponin levels serially normal. ECG without acute ischemic change. Echo pending to look for any WMA or reduction in EF. It is possible that her chest pain is related to her acute HF as
she seems to be improving from a symptomatic standpoint with initial diuresis.
-Telemetry reviewed by me and patient has frequent PVCs. On the records that I obtained from her [facility] [employer] they were also treating her for frequent PVCs. Metoprolol was recently changed to atenolol due to symptoms of orthostasis. Will
follow on telemetry and her primary lab[facility] [employer] was planning on switching to verapamil pending her symptom improvement with atenolol, that medication change from metoprolol to atenolol was made only 4 days ago.
-Patient is intolerant to statins due to myalgia and she had an allergy to Repatha that it caused eye swelling and back pain so that was also stopped. At this point she is not on any lipid-lowering medications despite her history of LAD PCI in 2021
-Patient is also still chronically on aspirin and Plavix and this is presumably related to previous LAD PCI in 2021 although the records from the [facility] [employer] do not specifically say that.
[2024-12-20] MEDS: ASPIR LOW (ENTERIC COATED) 81 MG PO (09:17)
[2024-12-20] MEDS: PLAVIX 75 MG PO (09:17)
[2024-12-20] MEDS: SODIUM BICARBONATE 650 MG PO ×2 (09:17→19:59)
[2024-12-20] MEDS: ZOLOFT 25 MG PO (09:17)
[2024-12-20] MEDS: NORVASC 10 MG PO ×2 (09:17→19:59)
[2024-12-20] MEDS: VITAMIN B-12 1000 MCG PO (09:21)
[2024-12-20] MEDS: ROCALTROL 0.25 MCG PO (09:23)
[2024-12-20] MEDS: HEPARIN 5000 UNITS SC (09:23)
[2024-12-20] MEDS: TIMOPTIC 0.5% OPHTHALMIC SOLUTION 1 DROP RIGHT EYE ×2 (09:23→19:59)
--- NOTE | 2024-12-20 09:33 | W.PN.HOSP.TC ---
Today's Communication/Plan
-
See plan
Assessment / Plan
Assessment / Plan
Impression
This is a 84-year-old with past medical history significant for CAD he is status post tenting, hypothyroid, COPD not on home O2, previous history of diabetes now no longer on treatment, history of diastolic heart failure, CKD stage IV who presents
to the emergency department with approximately 1 day history of exertional dyspnea that she describes as elephant sitting on her chest anytime she walks around. Will be exertional angina runs well. She denies palpitations lightheadedness or
dizziness. She denies having any chest pain at rest. She reports dependent ankle edema only during the daytime. She has not had any acute weight gain. The amount of exertional discomfort as resulted in weakness. She has had a history of
generalized weakness in the past but this feels different. No signs of acute infection.
Concern for acute coronary syndrome (patient presents with exertional chest pressure and shortness of breath, accelerated over the last 48 hours)
Known CAD with stent 4 years ago
Hypertensive emergency
Conditions prior to admission
CAD with stent 4 years ago details unclear. Primary hemmer chainstitch Dr. Byrd at [facility]
History of CVA
Chronic diastolic CHF.
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
IDDM/insulin pump baseline
Essential hypertension
COPD
Hypothyroidism on replacement
History of giant cell arteritis.
Anemia of chronic disease
Plan:
Acute coronary syndrome
Presents with exertional chest pressure and dyspnea.
ECG with no ischemia
Troponin in negative range.
Noted with accelerated blood pressure systolic readings at 180.
Given aspirin
Continue Plavix
Nitroglycerin IV drip
Heparin IV drip
Echocardiogram
Cardiology consultation
May require ischemic evaluation. Represent risks with known CKD.
Preadmission antihypertensive regimen including amlodipine and atenolol.
Chronic diastolic CHF.
No evidence for significant volume overload on exam
Chest x-ray clear
Noted with elevated pro CHF BNP
Not on diuretics prior to presenting
Given elevated SBP and mild peripheral edema placed on IV Lasix 20 mg IV twice daily. Will monitor renal function and volume status closely
COPD without exacerbation.
Continue budesonide/formoterol
CKD stage IIIb-IV. Baseline creatinine around 2.
Continue oral bicarbonate
Monitor renal function/output closely while on IV diuretics
Anemia of chronic disease
Hemoglobin stable at 10.
Check iron studies.
EPO level
Start PPI for prophylaxis (DAPT with addition of heparin)
IDDM
On insulin pump WASTE TREATMENT OPERATOR.
Update hemoglobin A1c
Basal bolus protocol with serial Accu-Cheks per
Diabetic management consultation
Hypothyroidism on replacement
Noted mild elevated TSH with normal free T4
Continue levothyroxine
History of giant cell arteritis
Not on corticosteroids or immunosuppressive medication prior to admission.
Depression. Continue Zoloft
Full code
Anticipated Discharge: 24 - 48 hours
Subjective/Interval History
-
Date of Service: December 20, 2024
Objective Data
-
Labs:
Laboratory Results
12/20/24 12/20/24 12/20/24
06:46 07:12 09:21
WBC Pending
Hgb Pending
Hct Pending
Plt Count Pending
APTT Pending
Sodium Cancelled Pending
Potassium Cancelled Pending
Chloride Cancelled Pending
Carbon Dioxide Cancelled Pending
BUN Cancelled Pending
Creatinine Cancelled Pending
Glucose Cancelled Pending
Calcium Cancelled Pending
Vital Signs:
Vital Signs
Temp Pulse Resp BP Pulse Ox
98.3 F 70 16 197/55 97
12/19/24 18:04 12/20/24 09:22 12/20/24 08:30 12/20/24 09:22 12/20/24 08:30
Physical Exam
-
General: Well Developed and No Apparent Distress
HEENT: Normocephalic, Atraumatic and Moist Mucous Membranes
Respiratory: Clear to Auscultation
Cardiac: Regular Rhythm and S1/S2; Negative Murmur, Rub or Gallop
GI: Soft, Nontender, Nondistended and Normal Bowel Sounds; Negative Organomegaly
Rectal: Deferred by Provider
Musculoskeletal: No Clubbing, No Cyanosis and No Edema
Skin: Negative Rash
Neuro: Nonfocal/Grossly Intact
[2024-12-20] MEDS: HEPARIN 25000 UNITS/250 ML IV (09:59)
[2024-12-20] MEDS: NITROGLYCERIN PREMIX 250 IV (10:06)
[2024-12-20 10:08] LABS: Hematocrit 39.0 % (37.0-47.0); Hemoglobin 12.8 g/dL (12.0-16.0); Mean Corp Hgb Conc. 32.8 g/dL (33.0-37.0); Mean Corpuscular Volume 85.3 fL (81.0-99.0); Platelet Count 231 10^3/uL (130-400); Red Cell Dist. Width 14.6 % (11.5-14.5)
[2024-12-20 10:14] LABS: APTT 37.2 Sec (23.4-35.0)
[2024-12-20] MEDS: TENORMIN 25 MG PO (10:34)
--- NOTE | 2024-12-20 10:46 | CM ---
CM reviewed chart and met with pt bedside in ED. Pt lives alone in split level home, [address], 6 steps to Bedroom and bath.
Independent in ADLs, personal care and ambulation. Uses walker or cane when walking a distance. Still driving.
Hx [facility] and [facility]. Hx [facility] for STR.
WAITE reviewed and signed. Confirms prescription coverage.
PCP: Nolan Pinedo
Pharmacy: [facility]
CM will continue to follow for all discharge planning needs.
--- NOTE | 2024-12-20 10:50 | PN.DE.MGMTRT ---
Insulin Management
- -
12/20/2024 Diabetes Management Consult - Insulin pump
Patient admitted today with c/o weakness, found to have acute exacerbation CHF. PMH COPD, CHF, CAD, HTN, diabetes, hypothyroid. Prior to admission is using the Medtronic insulin pump with Guardian Sensor, extended wear (7day) infusion set.
Patient is unsure of which insulin she uses. A1C to be updated, pending. cr 1.9, eGFR 25.40.
Patient is awake alert and oriented able to discuss diabetes care. States she has had diabetes 20+ years and has been using an insulin pump for 1 year. She sees endocrine at [facility].
Glucose on admission 109 and has remained 91 to 98.
Pump settings as follows:
Basal rate .15 12am to 12am 24 hour basal total 3.6 units.
Sensitivity 80
I:CHO 11
Active insulin 2 hour.
Will continue insulin pump, patient aware glucose will be check with hospital accuchek system ACHS. Infusion set not due to be changed until 12/26. Diet modified to include 1600 calories.
Discussed with nurse.
Will follow
Diabetes History
- -
Type of Diabetes: 2 requiring insulin
Pre-Admission Diabetes Regimen
12/19/24 12/20/24 12/20/24
18:10 06:46 09:40
Creatinine 1.9 H Cancelled Cancelled
Insulin Pump Settings
IP Diabetes Regimen
12/19/24 12/20/24 12/20/24
18:10 06:46 09:40
Glucose 143 H Cancelled Cancelled
Patient Education
--- NOTE | 2024-12-20 10:59 | CM ---
CM reviewed chart and met with pt bedside in ED. Pt lives alone, split level home, [address], 6 steps to bedroom and bath.
Independent in ADLs, personal care and ambulation. Has 2 walkers and SPC which she uses to walk outside the home. Still driving.
Daughter lives close by and assists as needed.
WAITE reviewed and signed.
Hx [facility] , hx [facility] for STR.
PCP: Nolan Pinedo
[facility]
CM will continue to follow for all discharge planning needs.
[2024-12-20] MEDS: PT'S OWN INSULIN PUMP - NovoLOG SC ×4 (11:57→22:17)
[2024-12-20 12:41] LABS: Troponin I 0.016 ng/ml
[2024-12-20 13:08] LABS: Blood Urea Nitrogen 38 mg/dl (7-17); Calcium 10.0 mg/dl (8.4-10.2); Carbon Dioxide 28 mmol/L (22-30); Chloride 103 mmol/L (98-107); Estimated Creatinine Clearance 19 ml/min; Glucose 124 mg/dl (70-99); HDL Cholesterol 62 mg/dl; LDL Cholesterol, Calculated 100 mg/dl; Magnesium 2.1 mg/dl (1.6-2.3); Potassium 3.2 mmol/L (3.5-5.1); Sodium 142 mmol/L (135-145); Very Low Density Lipoprotein 17 mg/dl (0-30); eGFR 25.40
[2024-12-20 17:17] LABS: Glucose - Point of Care 85 mg/dl (70-99)
--- NOTE | 2024-12-20 18:00 | PTCARENOTE ---
Rec'd report from Miranda in the ED; Rec'd pt AAOx3 w/no c/o CP or SOB. Pt w/VSS on arrival w/HR in the 60's & BP 110/74. Pt is SR w/freq PVC's on telemetry monitoring. Pt w/IV Heparin & IV Nitro infusing as ordered through patent IV lines. Pt
oriented to room & CAD & CHF books given to pt. Pt w/call singh within reach & plan of care ongoing.
[2024-12-20 18:08] LABS: APTT > 200 Sec (23.4-35.0)
[2024-12-20] MEDS: SYMBICORT 160/4.5 MCG INHALER 2 PUFF INH (19:19)
[2024-12-20 22:16] LABS: Glucose - Point of Care 112 mg/dl (70-99)
--- NOTE | 2024-12-20 23:04 | VATNOTE ---
Called by PCN@ [phone] for possible extravasation of IV Nitro thrrough IV in R Forearm. Told PCN i would be up to assess site but did tell her to aply heat until I arrived. Upon assesment of site (+)large ecchymotic area. Asked PCN to call provider.
Per VAT extravasation protocol asked for Hyaluronidase to site. Awaiting for PCN to reach out when med available. Reached out to PCN , PCN and provider at bedside and treating with topical Nitroglycerin as adjunct therapy per protocol
--- NOTE | 2024-12-20 23:05 | W.PN.UPDATE ---
Update Note
Progress Note Update
RT arm with IV infiltration while she is on Nitro drip. Site seen and evaluated, + pulse and capillary refill. / Nitroglycerin topical/ Non cytotoxic extravasation protocol ordered.
[2024-12-20] MEDS: NITRO-BID TOPICAL (23:13)
--- NOTE | 2024-12-20 23:32 | PTCARENOTE ---
Received patient at change of shift. SR with PVCs on the monitor, HR in the 60s. Heparin restarted at 20:15 as per protocol, see documentation. Right forearm IV site noted to be red/ecchymotic upon initial assessment of patient, and causing mild
discomfort. IV removed and VAT nurse Rogelio notified. Per VAT nurses assessment, elevated and applied a warm compress to patients arm. PEELED POTATO INSPECTOR Laura Palmer notified and assessed patient and ordered topical antidote. Removed gauze and tape to apply, and
patient was still oozing blood out of old IV site. New dressing applied. Call singh within reach.
[2024-12-21] VITALS (7 sets, daily range): BP systolic 114–145; BP diastolic 47–75; BMI 18.3
[2024-12-21] MEDS: TYLENOL 650 MG PO (00:53)
--- NOTE | 2024-12-21 02:44 | DOWNTIME ---
There was a Fleep Client Paintings Restorer Downtime on 12/21/2024 from 0100 to 12/21/2024 at 0215. Downtime documentation of patient's care, including medication administrations, has been reconciled in the electronic record per guidelines. Refer to the
patient's paper chart under the miscellaneous tab to see printed paper medication records and downtime forms.
[2024-12-21 03:03] LABS: APTT 136.4 Sec (23.4-35.0)
[2024-12-21 03:11] LABS: Blood Urea Nitrogen 35 mg/dl (7-17); Calcium 9.7 mg/dl (8.4-10.2); Carbon Dioxide 33 mmol/L (22-30); Chloride 99 mmol/L (98-107); Estimated Creatinine Clearance 16 ml/min; Glucose 110 mg/dl (70-99); Potassium 3.0 mmol/L (3.5-5.1); Sodium 138 mmol/L (135-145); eGFR 23.88
[2024-12-21] MEDS: KCL 40 MEQ PO (03:28)
[2024-12-21] MEDS: NITRO-BID 1 INCH TOPICAL (03:29)
[2024-12-21] MEDS: SYNTHROID 75 MCG PO (06:03)
--- NOTE | 2024-12-21 07:55 | PTCARENOTE ---
Assumed care of pt from prev nsg shift; Pt drowsy but easily arousable, AAOx3 w/no c/o CP or OSB; Pt's VSS this AM w/HR in the 50's-60's & BP 131/49. Pt is SB on telemetry monitoring w/no PVC's noted this AM. Pt w/c/o R forearm pain at her old IV
site, rating at a 3/10. VAT had seen pt last night & IV nitro infiltrate reported. Warm compress applied & RUE elevated as recommended. Plan of care discussed w/pt & no addtl needs at this time. Call singh within reach.
[2024-12-21 08:16] LABS: Glycohemoglobin (HgbA1c) 6.9 % (4.0-5.6)
[2024-12-21] MEDS: SYMBICORT 160/4.5 MCG INHALER 2 PUFF INH ×2 (08:19→19:48)
--- NOTE | 2024-12-21 08:40 | PN.DE.MGMTRT ---
Insulin Management
- -
12/21/2024 Diabetes Management Consult - Insulin pump Follow up
Patient admitted 12/20 with c/o weakness, found to have acute exacerbation CHF. PMH COPD, CHF, CAD, HTN, diabetes, hypothyroid. Prior to admission is using the Medtronic insulin pump with Guardian Sensor, extended wear (7day) infusion set.
Patient is unsure of which insulin she uses. A1C 6.9%, cr 2, eGFR 23.88. States she has had diabetes 20+ years and has been using an insulin pump for 1 year. She sees endocrine at [facility].
Patient is awake alert and oriented able to discuss diabetes care. Has been utilizing pump for meal bolus without difficulty.
Glucose has remained 85 to 124. Fasting glucose today 99
Pump settings as follows:
Basal rate .15 12am to 12am 24 hour basal total 3.6 units.
Sensitivity 80
I:CHO 11
Active insulin 2 hour.
Will continue insulin pump, patient aware glucose will be check with hospital accuchek system ACHS. Infusion set not due to be changed until 12/26. Diet modified to include 1600 calories.
Discussed with nurse.
Will follow
Diabetes History
- -
Type of Diabetes: 2 requiring insulin
Pre-Admission Diabetes Regimen
12/20/24 12/20/24 12/21/24
09:40 12:09 02:33
Creatinine Cancelled 1.9 H 2.0 H
Lab Results
Hemoglobin A1c 6.9 % (4.0-5.6) H 12/21/24 02:33
Insulin Pump Settings
IP Diabetes Regimen
12/20/24 12/20/24 12/20/24
09:40 12:09 17:14
Glucose Cancelled 124 H
POC Glucose 85
12/20/24 12/21/24
22:15 02:33
Glucose 110 H
POC Glucose 112 H
Meal type: Dinner
Amount consumed: 100%
Patient Education
[2024-12-21 08:41] LABS: Glucose - Point of Care 99 mg/dl (70-99)
--- NOTE | 2024-12-21 09:21 | CM ---
Pricing on Farxiga through the patient's [facility] is $15 for a 30 day supply.
[2024-12-21 10:49] LABS: APTT 60.3 Sec (23.4-35.0)
--- NOTE | 2024-12-21 10:56 | CM ---
Chart reviewed. Patient is independent of ADLS, lives alone in a split level, 3 NANNETTE, patient does not use any DME but has a SPC and RW at home. PT evaluation recommended Home PT vs SNF. Patient appears very weak on her feet. Referral placed
to [facility] and [place]. CM to assess
[2024-12-21] MEDS: PT'S OWN INSULIN PUMP - NovoLOG 3.125 UNIT SC (10:58)
[2024-12-21] MEDS: VITAMIN B-12 1000 MCG PO (10:59)
[2024-12-21] MEDS: TENORMIN 25 MG PO (10:59)
[2024-12-21] MEDS: NORVASC 10 MG PO (10:59)
[2024-12-21] MEDS: TIMOPTIC 0.5% OPHTHALMIC SOLUTION 1 DROP RIGHT EYE ×2 (10:59→19:34)
[2024-12-21] MEDS: PLAVIX 75 MG PO (10:59)
[2024-12-21] MEDS: ASPIR LOW (ENTERIC COATED) 81 MG PO (10:59)
[2024-12-21] MEDS: ZOLOFT 25 MG PO (11:00)
[2024-12-21] MEDS: LASIX 20 MG IV ×2 (11:00→17:11)
[2024-12-21] MEDS: SODIUM BICARBONATE 650 MG PO ×2 (11:00→19:34)
--- NOTE | 2024-12-21 12:38 | W.PN.CARDCBS ---
Addendum entered and electronically signed by Norm Landon MD 12/21/24 13:39:
I saw and examined the patient.
The PSYCHOLOGY DEPARTMENT CHAIR or PA's note was reviewed and I agree with the note.
Comment: General: Well developed, well nourished in NAD.
Neck: Supple, no JVD, HJR, carotids +2 B/L, no bruits bilaterally.
Heart: Non displaced PMI, RRR, no murmurs, No S3, S4, no rubs.
Lungs: Scattered rhonchi
Extremities: No clubbing, cyanosis or edema bilaterally.
Neuro: Grossly nonfocal, awake, alert and oriented x3.
She appears much improved. Change to Lasix in a.m. and probable discharge on 12/22. Discussed with primary service
Original Note:
Today's Communication / Plan
-
transition to po lasix 20mg daily
norvasc 10mg daily
atenolol 27.5mg daily
replete K
stop IV heparin. continue asa, plavix
will arrange OP cardiac follow up with AMS
possible DC in AM
Impression / Plan
-
PCP: Dr. Nolan Pinedo
Card: Dr. Osvaldo Byrd
Impression:
Admitted with chest pain and acute HF 12/20/2024
Chest pain
Acute HFpEF
CAD s/p LAD PCI 2021
HTN
Hyperlipidemia with statin intolerance and allergy to Repatha
PAD s/p axillary brachial bypass 2017
Orthostasis
h/o CVA to the left doris unknown date
CKD 4
Echo 05/16/2024: EF 55 to 60%, GLS -13.1%, trace MR, mild TR
Echo 12/20/2024: EF 60 to 65%, mild MAC, mild MR, aortic sclerosis, mildly dilated RV with PAP 33 mmHg
Plan:
-Patient presented with CP
-noted to be in acute HFpEF.
-trops serially negative
-EKG without acute ischemic changes
-echo with preserved EF
-presently without CP
-stop IV heparin
-BPs improving. will reduce norvasc dose back to max of 10mg daily. increase atenolol back to OP dosing of 37.5mg daily. of note, she has history of dizziness with metoprolol with increasing dose to 50mg daily (resulting in transition to atenolol
without issues)
-continue IV lasix, plan to transition to po for AM. she was not taking diuretic prior to admission. Cr stable at 2
-BMP in 1 week upon DC
-CHF education
-in SR with PVCs, asymptomatic. she had OP holter monitor with 15% ectopic burden. replete K. will start patient on 10mEq daily to continue upon DC
-unclear if good candidate for sglt2 inhibitor due to advanced age and baseline Cr 2
-Patient is intolerant to statins due to myalgia and she had an allergy to Repatha that it caused eye swelling and back pain so that was also stopped. At this point she is not on any lipid-lowering medications despite her history of LAD PCI in 2021
-Patient is also still chronically on aspirin and Plavix and this is presumably related to previous LAD PCI in 2021 although the records from the primary dough braker do not specifically say that.
-ambulate
-for possible DC in AM
-will arrange OP cardiac follow up with AMS. could consider OP stress testing
-d/w nursing
Progress Note - Base Remover
Subjective
Date of Service: December 21, 2024
no CP, palpitations. reports breathing stable.
Objective
Labs:
12/20/24 09:40
12/21/24 02:33
Labs
Hgb 12.8 g/dL (12.0-16.0) D 12/20/24 09:40
Hct 39.0 % (37.0-47.0) 12/20/24 09:40
Plt Count 231 10^3/uL (130-400) 12/20/24 09:40
PT 14.0 Sec (11.4-14.6) 12/19/24 18:10
INR 1.05 12/19/24 18:10
APTT 60.3 Sec (23.4-35.0) H 12/21/24 10:27
Sodium 138 mmol/L (135-145) 12/21/24 02:33
Potassium 3.0 mmol/L (3.5-5.1) L 12/21/24 02:33
BUN 35 mg/dl (7-17) H 12/21/24 02:33
Creatinine 2.0 mg/dL (0.6-1.0) H 12/21/24 02:33
Glucose 110 mg/dl (70-99) H 12/21/24 02:33
Troponins
12/19/24 12/20/24 12/20/24
18:10 00:58 06:47
Troponin I < 0.012 0.012 0.016 D
12/20/24
12:09
Troponin I 0.016
Vital Signs and I&O:
Vital Signs
Temp Pulse Resp BP Pulse Ox
98.1 F 63 18 116/75 98
12/21/24 11:31 12/21/24 11:31 12/21/24 11:31 12/21/24 11:31 12/21/24 11:31
Vital Signs
Temp Pulse Resp BP Pulse Ox
98.1 F 63 18 116/75 98
12/21/24 11:31 12/21/24 11:31 12/21/24 11:31 12/21/24 11:31 12/21/24 11:31
Intake & Output
12/19/24 12/20/24 12/21/24 12/22/24
07:59 07:59 07:59 07:59
Intake Total 440 / 440
Output Total 1200 / 1200
Balance -760 / -760
Physical Exam
Physical Exam
GEN: No distress, awake, alert, oriented x3. sitting in chair
HEENT: supple, anicteric, mmm, eomi
LUNGS: CTA B/L, no wheezes/rales
CV: Reg, S1/S2, no murmur
ABD: soft, BS+, NT/ND
EXT: No cyanosis, clubbing, edema
NEURO: Gross non-focal
SKIN: Warm, pink, dry. No rash
[2024-12-21 13:57] LABS: Glucose - Point of Care 125 mg/dl (70-99)
[2024-12-21] MEDS: PT'S OWN INSULIN PUMP - NovoLOG 2.1 UNIT SC (14:40)
--- NOTE | 2024-12-21 15:05 | W.PN.HOSP.TC ---
Today's Communication/Plan
-
Diuresis
Adjust antihypertensive regimen
Assessment / Plan
Assessment / Plan
Impression
This is a 84-year-old with past medical history significant for CAD he is status post tenting, hypothyroid, COPD not on home O2, previous history of diabetes now no longer on treatment, history of diastolic heart failure, CKD stage IV who presents
to the emergency department with approximately 1 day history of exertional dyspnea that she describes as elephant sitting on her chest anytime she walks around. Will be exertional angina runs well. She denies palpitations lightheadedness or
dizziness. She denies having any chest pain at rest. She reports dependent ankle edema only during the daytime. She has not had any acute weight gain. The amount of exertional discomfort as resulted in weakness. She has had a history of
generalized weakness in the past but this feels different. No signs of acute infection.
Concern for acute coronary syndrome (patient presents with exertional chest pressure and shortness of breath, accelerated over the last 48 hours)
Known CAD with stent 4 years ago
Hypertensive emergency
Conditions prior to admission
CAD with stent 4 years ago details unclear. Primary bricklayer paving brick Dr. Byrd at [facility]
History of CVA
Chronic diastolic CHF.
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
IDDM/insulin pump baseline
Essential hypertension
COPD
Hypothyroidism on replacement
History of giant cell arteritis.
Anemia of chronic disease
Plan:
Acute coronary syndrome ruled out
Presents with exertional chest pressure and dyspnea.
ECG with no ischemia
Troponin in negative range.
Noted with accelerated blood pressure systolic readings at 180.
Given aspirin
Continue Plavix
Serial cardiac markers negative
Echocardiogram with preserved biventricular function and no evidence for lipid nuclear wall motion abnormalities
Overall chest pressure improved with diuresis
Heparin and nitroglycerin drip discontinued
Continue DAPT
Optimize medication regimen
Chronic diastolic CHF.
No evidence for significant volume overload on exam
Chest x-ray clear
Noted accelerated hypertension/hypertensive urgency with elevated pro CHF BNP
Continue IV diuresis
Adjust antihypertensive regimen with reducing dose of Norvasc to 10 mg daily, increasing atenolol to 37 5 mg daily
Monitor blood pressure trend and renal function with diuresis
COPD without exacerbation.
Continue budesonide/formoterol
CKD stage IIIb-IV. Baseline creatinine around 2.
Continue oral bicarbonate
Monitor renal function/output closely while on IV diuretics
Anemia of chronic disease
Hemoglobin stable at 10.
Check iron studies.
EPO level
Start PPI for prophylaxis (DAPT with addition of heparin)
IDDM
On insulin pump CLINIC SPECIALIST.
Update hemoglobin A1c 6.9
Basal bolus protocol with serial Accu-Cheks per
Diabetic management consultation
Hypothyroidism on replacement
Noted mild elevated TSH with normal free T4
Continue levothyroxine
History of giant cell arteritis
Not on corticosteroids or immunosuppressive medication prior to admission.
Depression. Continue Zoloft
Full code
Anticipated Discharge: 24 - 48 hours
Subjective/Interval History
-
Date of Service: December 21, 2024
Objective Data
-
Labs:
Laboratory Results
12/21/24 12/21/24 12/21/24
02:33 10:27 17:00
APTT 136.4 H 60.3 H Pending
Sodium 138
Potassium 3.0 L
Chloride 99
Carbon Dioxide 33 H
BUN 35 H
Creatinine 2.0 H
Glucose 110 H
Calcium 9.7
Vital Signs:
Vital Signs
Temp Pulse Resp BP Pulse Ox
97.7 F 63 20 116/75 96
12/21/24 14:59 12/21/24 11:31 12/21/24 14:59 12/21/24 11:31 12/21/24 14:59
I&O
12/20/24 12/21/24 12/22/24
06:59 06:59 06:59
Intake Total 440 / 440
Output Total 1200 / 1200
Balance -760 / -760
Physical Exam
-
General: Well Developed and No Apparent Distress
HEENT: Normocephalic, Atraumatic and Moist Mucous Membranes
Respiratory: Clear to Auscultation
Cardiac: Regular Rhythm and S1/S2; Negative Murmur, Rub or Gallop
GI: Soft, Nontender, Nondistended and Normal Bowel Sounds; Negative Organomegaly
Rectal: Deferred by Provider
Musculoskeletal: No Clubbing, No Cyanosis and No Edema
Skin: Negative Rash
Neuro: Nonfocal/Grossly Intact
[2024-12-21 16:57] LABS: Glucose - Point of Care 151 mg/dl (70-99)
[2024-12-21] MEDS: PT'S OWN INSULIN PUMP - NovoLOG 2 UNIT SC (18:02)
--- NOTE | 2024-12-21 20:39 | PTCARENOTE ---
Received patient at change of shift. SR on the monitor, HR in the 60s. Patient OOB to chair with daughter in room, reports feeling much better than the night before. No complaints from pt at this time, call singh within reach.
[2024-12-21] MEDS: PT'S OWN INSULIN PUMP - NovoLOG SC (21:35)
[2024-12-21 21:36] LABS: Glucose - Point of Care 188 mg/dl (70-99)
[2024-12-22] VITALS (8 sets, daily range): BP systolic 94–135; BP diastolic 38–76; PULSE 59–62; BMI 18.1
[2024-12-22 03:41] LABS: Hematocrit 35.6 % (37.0-47.0); Hemoglobin 11.7 g/dL (12.0-16.0); Mean Corp Hgb Conc. 32.9 g/dL (33.0-37.0); Mean Corpuscular Volume 85.4 fL (81.0-99.0); Platelet Count 227 10^3/uL (130-400); Red Cell Dist. Width 14.5 % (11.5-14.5)
[2024-12-22 04:09] LABS: Blood Urea Nitrogen 44 mg/dl (7-17); Calcium 9.6 mg/dl (8.4-10.2); Carbon Dioxide 29 mmol/L (22-30); Chloride 100 mmol/L (98-107); Estimated Creatinine Clearance 14 ml/min; Glucose 129 mg/dl (70-99); Potassium 3.9 mmol/L (3.5-5.1); Sodium 136 mmol/L (135-145); eGFR 21.30
[2024-12-22] MEDS: SYNTHROID 75 MCG PO (05:46)
[2024-12-22] MEDS: SYMBICORT 160/4.5 MCG INHALER 2 PUFF INH (07:35)
--- NOTE | 2024-12-22 08:32 | PN.DE.MGMTRT ---
Insulin Management
- -
12/22/2024 Diabetes Management Consult - Insulin pump Follow up
Patient admitted 12/20 with c/o weakness, found to have acute exacerbation CHF. PMH COPD, CHF, CAD, HTN, diabetes, hypothyroid. Prior to admission is using the Medtronic insulin pump with Guardian Sensor, extended wear (7day) infusion set.
Patient is unsure of which insulin she uses. A1C 6.9%, cr 2, eGFR 23.88. States she has had diabetes 20+ years and has been using an insulin pump for 1 year. She sees endocrine at [facility].
Patient is awake alert and oriented able to discuss diabetes care. Has been utilizing pump for meal bolus without difficulty.
Glucose range 99 to 188. Fasting glucose today 129
Pump settings as follows:
Basal rate .15 12am to 12am 24 hour basal total 3.6 units.
Sensitivity 80
I:CHO 11
Active insulin 2 hour.
Will continue insulin pump, patient aware glucose will be check with hospital accuchek system ACHS. Infusion set not due to be changed until 12/26.
Discussed with nurse.
Will follow
Diabetes History
- -
Type of Diabetes: 2 requiring insulin
Pre-Admission Diabetes Regimen
12/22/24
03:11
Creatinine 2.2 H
Lab Results
Hemoglobin A1c 6.9 % (4.0-5.6) H 12/21/24 02:33
Insulin Pump Settings
IP Diabetes Regimen
12/21/24 12/21/24 12/21/24
08:39 13:56 16:55
Glucose
POC Glucose 99 125 H 151 H
12/21/24 12/22/24
21:33 03:11
Glucose 129 H
POC Glucose 188 H
Meal type: Dinner
Meal type: Breakfast
Amount consumed: 100%
Amount consumed: 70%
Patient Education
[2024-12-22 08:35] LABS: Glucose - Point of Care 117 mg/dl (70-99)
[2024-12-22] MEDS: TIMOPTIC 0.5% OPHTHALMIC SOLUTION 1 DROP RIGHT EYE (08:48)
--- NOTE | 2024-12-22 09:10 | W.PN.CARDCBS ---
Addendum entered and electronically signed by Jude Bal MD 12/22/24 10:29:
84-year-old woman admitted 12/1624 with acute HFpEF
PMH: CAD, status post LAD PCI 2021, hypertension, CKD 4, statin intolerance, PAD status post axillary to femoral bypass, orthostasis, left pontine stroke remotely
Meds reviewed:
135/42, pulse 59, respiratory rate 14, afebrile, weight is 49.3 kg, down 0.7 kg from yesterday, if accurate weight was 56.9 kg at admission, pleasant, somewhat hard of hearing, head neck exam unremarkable, lungs are clear, regular rate and rhythm,
occasional extrasystoles, no obvious murmurs JVD okay, not much edema
Hemoglobin is 11.7, BUN and creatinine are 44 and 2.2, creatinine was 1.9 at admission, has been as high as 3.2, proBNP was 6430 at admission, troponin peak 0.016
Echo: Small LV, EF 60-65%, MAC, mild MR, normal left atrium, aortic sclerosis, pulmonary artery systolic pressure is 33, mildly dilated right ventricle
Plan:
She seems stable with regards to HFpEF. Symptoms of chest heaviness have resolved.
No evidence of heart failure on exam.
Telemetry shows occasional PVCs.
Creatinine is up slightly but acceptable at 2.2.
Echocardiogram was overall reassuring.
She says she is somewhat unsteady on her feet. Will check orthostatic vital signs.
Okay for discharge from cardiac standpoint.
Recommended cardiac medications at discharge:
Aspirin 81 mg a day
Amlodipine 10 mg a day
Atenolol 37.5 mg daily
Furosemide 20 mg daily (new)
Potassium 10 mEq daily (new)
Ezetimibe 10 mg daily (new)
Stop clopidogrel
Patient in agreement to stop clopidogrel and try ezetimibe
BMP in 1 week.
Patient says she wishes to follow-up to [facility]. We will arrange for follow-up.
Original Note:
Today's Communication / Plan
-
po lasix 20mg daily
KCl 10 mEq daily
BMP in 1 week
continue asa, plavix, norvasc, atenolol
OP follow up with AMS
Impression / Plan
-
PCP: Dr. Nolan Pinedo
Card: Dr. Osvaldo Byrd
Impression:
Admitted with chest pain and acute HF 12/20/2024
Chest pain
Acute HFpEF
CAD s/p LAD PCI 2021
HTN
Hyperlipidemia with statin intolerance and allergy to Repatha
PAD s/p axillary brachial bypass 2017
Orthostasis
h/o CVA to the left doris unknown date
CKD 4
Echo 05/16/2024: EF 55 to 60%, GLS -13.1%, trace MR, mild TR
Echo 12/20/2024: EF 60 to 65%, mild MAC, mild MR, aortic sclerosis, mildly dilated RV with PAP 33 mmHg
Plan:
-Patient presented with CP
-noted to be in acute HFpEF. Diuresed, and transition today to Lasix 20 mg p.o. daily to continue upon discharge. She was not on diuretic prior to admission. Creatinine 2.2
-CHF education provided
-BMP in 1 week
-unclear if good candidate for sglt2 inhibitor due to advanced age and baseline Cr 2
-trops serially negative. EKG without acute ischemic changes
-echo with preserved EF
-Without chest pain overnight
-Continue Norvasc 10 mg daily, atenolol 37.5 mg daily. of note, she has history of dizziness with metoprolol with increasing dose to 50mg daily (resulting in transition to atenolol without issues)
-in SR with PVCs, asymptomatic. she had OP holter monitor with 15% ectopic burden. Continue KCl 10 mill equivalents p.o. daily, started this admission
-Patient is intolerant to statins due to myalgia and she had an allergy to Repatha that it caused eye swelling and back pain so that was also stopped. At this point she is not on any lipid-lowering medications despite her history of LAD PCI in 2021
-Patient is also still chronically on aspirin and Plavix and this is presumably related to previous LAD PCI in 2021
-reports feeling weak with ambulation at times. PT following
-Okay for discharge from cardiac standpoint
-OP cardiac follow up with AMS arranged. could consider OP stress testing, defer to primary numerical tool programmer
Progress Note - Clinic Lpn
Subjective
Date of Service: December 22, 2024
Reports feeling weak with ambulation. No chest pain. Reports breathing improved. Eager for discharge
Objective
Labs:
12/22/24 03:11
12/22/24 03:11
Labs
Hgb 11.7 g/dL (12.0-16.0) L 12/22/24 03:11
Hct 35.6 % (37.0-47.0) L 12/22/24 03:11
Plt Count 227 10^3/uL (130-400) 12/22/24 03:11
PT 14.0 Sec (11.4-14.6) 12/19/24 18:10
INR 1.05 12/19/24 18:10
APTT Cancelled 12/21/24 17:00
Sodium 136 mmol/L (135-145) 12/22/24 03:11
Potassium 3.9 mmol/L (3.5-5.1) D 12/22/24 03:11
BUN 44 mg/dl (7-17) H 12/22/24 03:11
Creatinine 2.2 mg/dL (0.6-1.0) H 12/22/24 03:11
Glucose 129 mg/dl (70-99) H 12/22/24 03:11
Troponins
12/19/24 12/20/24 12/20/24
18:10 00:58 06:47
Troponin I < 0.012 0.012 0.016 D
12/20/24
12:09
Troponin I 0.016
Vital Signs and I&O:
Vital Signs
Temp Pulse Resp BP Pulse Ox
98.9 F 59 14 135/42 100
12/22/24 07:22 12/22/24 07:45 12/22/24 07:38 12/22/24 07:22 12/22/24 07:38
Vital Signs
Temp Pulse Resp BP Pulse Ox
98.9 F 59 14 135/42 100
12/22/24 07:22 12/22/24 07:45 12/22/24 07:38 12/22/24 07:22 12/22/24 07:38
Intake & Output
12/20/24 12/21/24 12/22/24 12/23/24
07:59 07:59 07:59 07:59
Intake Total 440 / 440 1160 / 1160
Output Total 1200 / 1200 1550 / 1550
Balance -760 / -760 -390 / -390
Physical Exam
Physical Exam
GEN: No distress, awake, alert, oriented x3.
HEENT: supple, anicteric, mmm, eomi
LUNGS: CTA B/L, no wheezes/rales
CV: Reg, S1/S2, no murmur
ABD: soft, BS+, NT/ND
EXT: No cyanosis, clubbing, edema
NEURO: Gross non-focal
SKIN: Warm, pink, dry. No rash
[2024-12-22] MEDS: PT'S OWN INSULIN PUMP - NovoLOG 2.325 UNIT SC (09:46)
[2024-12-22] MEDS: VITAMIN B-12 1000 MCG PO (09:47)
[2024-12-22] MEDS: PLAVIX 75 MG PO (09:47)
[2024-12-22] MEDS: ZOLOFT 25 MG PO (09:47)
[2024-12-22] MEDS: ROCALTROL 0.25 MCG PO (09:47)
[2024-12-22] MEDS: SODIUM BICARBONATE 650 MG PO (09:48)
[2024-12-22] MEDS: ASPIR LOW (ENTERIC COATED) 81 MG PO (09:48)
[2024-12-22] MEDS: LASIX 20 MG PO (09:48)
[2024-12-22] MEDS: NORVASC 10 MG PO (09:48)
[2024-12-22] MEDS: TENORMIN 37.5 MG PO (09:49)
[2024-12-22] MEDS: KCL 10 MEQ PO (09:49)
--- NOTE | 2024-12-22 10:31 | CM ---
Addendum entered by Diane Sin RN 12/22/24 14:07:
Insurance auth# [id number] approved 6 days, NRD 12/27 . Daughter to transport patient to [facility]
Original Note:
Chart reviewed. Patient is independent of ADLS, lives alone in a split level, 3 NANNETTE, 0 DME, ambulates with a RW and a SPC. PT evaluation recommending SNF. Patient will need preauthorization, OT evaluation requested. Patient would like to go
to [facility] or [facility]. [facility] does not take an insulin pump. Plan is for the patient to go to [facility] pending insurance authroization. CM to follow.
--- NOTE | 2024-12-22 11:02 | W.DS.TRANS ---
Addendum entered and electronically signed by Walker Avila MD 12/22/24 15:16:
Plavix discontinue
Original Note:
DC Summary - Mining Consultant
-
Discharge Instructions:
Sleep Apnea Risk Intermediate
Discharge Diagnosis/Procedures CHF, chest pain
Diet 2 Gram Sodium
Activity As tolerated
Blood Work BMP in 1 week
Specialty Instructions Weigh Daily
Instructions: *DCA Heart Failure Instructions
Stand-Alone Forms:
Changes to Home Medications: Yes
Discharge Medications:
DC Medications w/original date entered in [employer]
aspirin 81 mg tablet,delayed release 81 mg PO DAILY Blood clot prevention/tx 02/10/22
clopidogrel 75 mg tablet 75 mg PO DAILY Blood clot prevention/tx 02/10/22
levothyroxine 75 mcg tablet (Synthroid) 75 mcg PO MOTUWETHFRSA Thyroid 02/10/22
sodium bicarbonate 650 mg tablet 650 mg PO BID #60 tabs 02/17/22
Held on 12/22/24. Instructions: Resume on 12/29/24.
calcitriol 0.25 mcg capsule 0.25 mcg PO DAILY Supplement 06/19/22
levothyroxine 75 mcg tablet 112.5 mcg PO ANTUNEZ Thyroid 06/19/22
timolol maleate 0.5 % eye drops 1 drp RIGHT EYE BID Eye condition 06/19/22
cyanocobalamin (vitamin B-12) 1,000 mcg tablet 1,000 mcg PO DAILY #30 tabs 06/23/22
atenolol 25 mg tablet 37.5 mg PO DAILY Heart Disease/Condition 12/19/24
denosumab 60 mg/mL subcutaneous syringe (Prolia) 60 mg SC [id number] bone health 12/19/24
fluticasone furoate 200 mcg-vilanterol 25 mcg/dose inhalation powder (Breo Ellipta) 1 inh inhalation R DAILY Lung/Breathing Issues 12/19/24
sertraline 25 mg tablet (Zoloft) 25 mg PO DAILY Mental Health 12/19/24
Patient Own Insulin Pump 1 sliding scale dose SC .VIAQ NOVOLOG Diabetes 12/20/24
calcium carbonate (Tums) 200 mg PO AC Supplement 12/20/24
amlodipine 10 mg tablet 10 mg PO DAILY 30 days #30 tabs 12/22/24
furosemide 20 mg tablet 20 mg PO DAILY #30 tabs 12/22/24
Home Medication Changes
Amlodipine decreased
ASA added
Furosemide 20 mg daily (new)
Potassium 10 mEq daily (new)
Ezetimibe 10 mg daily (new)
Pending Results: No
[2024-12-22 12:16] LABS: Glucose - Point of Care 165 mg/dl (70-99)
[2024-12-22] MEDS: PT'S OWN INSULIN PUMP - NovoLOG 2.175 UNIT SC (13:22)
--- NOTE | 2024-12-22 13:38 | HFEDUCATE ---
84 yo female admitted with chest pain and acute HF. Past medical history includes CAD s/p LAD PCI 2021, HTN, hyperlipidemia with statin intolerance, PAD, orthostasis, CVA, CKD 4, DM. Her current echocardiogram shows an ejection fraction of 60-65%.
She lives alone. She reports following a low sodium diet and a 48oz fluid restriction per day. She has a scale and weighs herself daily.
I provided HF education and discussed the usual lifestyle recommendations. I advised she continue her low sodium diet of 2000-3000mg. per day and follow a 500-750mg. per meal restriction. I advised a 48 oz. fluid restriction per day and discussed
ways to achieve the recommendations. I also advised she continue weighing herself daily and monitoring for any slight weight gain. I reviewed how to monitor for exacerbations. We discussed other alarming symptoms to watch for and when to notify her
provider. We discussed need for medications.
Recommendations:
Continue all HF recommended medications as ordered on discharge.
Limit sodium intake to <500-750 mg. per meal.
Limit fluid intake to <48 oz per day.
Daily weights and contact provider for any weight gain >3lbs in one day or 5lbs in one week.
Follow up with provider as recommended.
--- NOTE | 2024-12-22 13:38 | W.PN.HOSP.TC ---
Today's Communication/Plan
-
BP improved.
Chest pain-free.
GDMT had been optimized including transitioning to oral diuretics.
Hold oral bicarbonate.
SNF placement pending bed availability
Assessment / Plan
Assessment / Plan
Impression
This is a 84-year-old with past medical history significant for CAD he is status post tenting, hypothyroid, COPD not on home O2, previous history of diabetes now no longer on treatment, history of diastolic heart failure, CKD stage IV who presents
to the emergency department with approximately 1 day history of exertional dyspnea that she describes as elephant sitting on her chest anytime she walks around. Will be exertional angina runs well. She denies palpitations lightheadedness or
dizziness. She denies having any chest pain at rest. She reports dependent ankle edema only during the daytime. She has not had any acute weight gain. The amount of exertional discomfort as resulted in weakness. She has had a history of
generalized weakness in the past but this feels different. No signs of acute infection.
Concern for acute coronary syndrome (patient presents with exertional chest pressure and shortness of breath, accelerated over the last 48 hours)
Known CAD with stent 4 years ago
Hypertensive emergency
Conditions prior to admission
CAD with stent 4 years ago details unclear. Primary hat sizer Dr. Byrd at [facility]
History of CVA
Chronic diastolic CHF.
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
IDDM/insulin pump baseline
Essential hypertension
COPD
Hypothyroidism on replacement
History of giant cell arteritis.
Anemia of chronic disease
Plan:
Acute coronary syndrome ruled out
Presents with exertional chest pressure and dyspnea.
ECG with no ischemia
Troponin in negative range.
Noted with accelerated blood pressure systolic readings at 180.
Given aspirin
Continue Plavix
Serial cardiac markers negative
Echocardiogram with preserved biventricular function and no evidence for lipid nuclear wall motion abnormalities
Overall chest pressure improved with diuresis
Heparin and nitroglycerin drip discontinued
Continue DAPT
Optimize medication regimen
Chronic diastolic CHF.
No evidence for significant volume overload on exam
Chest x-ray clear
Noted accelerated hypertension/hypertensive urgency with elevated pro CHF BNP
Continue IV diuresis
Adjust antihypertensive regimen with reducing dose of Norvasc to 10 mg daily, increasing atenolol to 37 5 mg daily
Monitor blood pressure trend and renal function with diuresis
COPD without exacerbation.
Continue budesonide/formoterol
CKD stage IIIb-IV. Baseline creatinine around 2.
Hold oral bicarbonate given alkalosis and volume retention
Anemia of chronic disease
Hemoglobin stable at 10.
Check iron studies.
EPO level
Start PPI for prophylaxis (DAPT with addition of heparin)
IDDM
On insulin pump [employer].
Update hemoglobin A1c 6.9
Basal bolus protocol with serial Accu-Cheks per
Diabetic management consultation
Hypothyroidism on replacement
Noted mild elevated TSH with normal free T4
Continue levothyroxine
History of giant cell arteritis
Not on corticosteroids or immunosuppressive medication prior to admission.
Depression. Continue Zoloft
Full code
Anticipated Discharge: Within 24 hours
Subjective/Interval History
-
Date of Service: December 22, 2024
Objective Data
-
Labs:
Laboratory Results
12/22/24
03:11
WBC 10.4
Hgb 11.7 L
Hct 35.6 L
Plt Count 227
Sodium 136
Potassium 3.9 D
Chloride 100
Carbon Dioxide 29
BUN 44 H
Creatinine 2.2 H
Glucose 129 H
Calcium 9.6
Vital Signs:
Vital Signs
Temp Pulse Resp BP Pulse Ox
99.5 F 55 20 133/42 100
12/22/24 11:02 12/22/24 12:45 12/22/24 11:02 12/22/24 11:01 12/22/24 07:38
I&O
12/21/24 12/22/24 12/23/24
06:59 06:59 06:59
Intake Total 440 / 440 1160 / 1160 180 / 180
Output Total 1200 / 1200 1550 / 1550 350 / 350
Balance -760 / -760 -390 / -390 -170 / -170
Physical Exam
-
General: Well Developed and No Apparent Distress
HEENT: Normocephalic, Atraumatic and Moist Mucous Membranes
Respiratory: Clear to Auscultation
Cardiac: Regular Rhythm and S1/S2; Negative Murmur, Rub or Gallop
GI: Soft, Nontender, Nondistended and Normal Bowel Sounds; Negative Organomegaly
Rectal: Deferred by Provider
Musculoskeletal: No Clubbing, No Cyanosis and No Edema
Skin: Negative Rash
Neuro: Nonfocal/Grossly Intact
--- NOTE | 2024-12-22 13:55 | PN.CDI ---
CDI
- -
CDI:
Physician Documentation Request
Admit Date: 12/21/24 08:59
Dear Doctor Margarita,
Cardiology consult 12/20 states 'Reason for Consultation: Chest pain and acute HF She has noted increasing edema and weight gain of 8 pounds... BNP 4600.. Treat with IV Lasix..... It is possible that her chest pain is related to her acute HF as she
seems to be improving from a symptomatic standpoint with initial diuresis.'
Hospitalist 12/20 note states 'Chronic diastolic CHF. No evidence for significant volume overload on exam'
12/21 notes 'Noted accelerated hypertension/hypertensive urgency with elevated pro CHF BNP'
Please clarify the following:
____ - Acute on chronic diastolic CHF was present on admission
____ - Acute on chronic diastolic CHF was ruled out
____ - Other
Use of terms such as suspected, likely, concern for, or probable (associated with a specific diagnosis that is being evaluated, monitored, or treated as if it exists) are acceptable and can be coded in the inpatient setting, when documented at the
time of discharge.
Thank you,
Sheridan Lau RN, BSN
CDI Specialist
tiger text
Please use your independent medical judgment in providing your response.
--- NOTE | 2024-12-22 15:47 | PTCARENOTE ---
Pt seen by Dr. Avila, Wilma Umana, CAREER GUIDANCE TECHNICIAN and PT/OT. Report called to [facility] to [facility]. Telemetry and IV device removed. Discharge instructions reviewed with pt regarding medications, CHF guidelines, reporting cares and concerns and follow up
appt's. Very good understanding verbalized. Pt escorted out via wheelchair with all documents and driven by her dtr to [facility].
== END 2024-12-22 15:49 | DRG 291 ==
LOC: IVU 08:59
PROVIDERS: Emergency Medicine; Physician Assistant; ADMITTING PHYSICIAN Internal Medicine; ATTENDING PHYSICIAN Internal Medicine; EMERGENCY PHYSICIAN Emergency Medicine; FAMILY PHYSICIAN Internal Medicine; OTHER PHYSICIAN Internal Medicine Cardiovascular Disease
DX: I13.0 Hypertensive heart and chronic kidney disease with heart failure and stage 1 through stage 4 chronic kidney disease, or unspecified chronic kidney disease (principal); I50.31 Acute diastolic (congestive) heart failure; I16.1 Hypertensive emergency; N18.32 Chronic kidney disease, stage 3b; J44.9 Chronic obstructive pulmonary disease, unspecified; E03.9 Hypothyroidism, unspecified; I25.10 Atherosclerotic heart disease of native coronary artery without angina pectoris; M31.6 Other giant cell arteritis; D63.1 Anemia in chronic kidney disease; E11.22 Type 2 diabetes mellitus with diabetic chronic kidney disease; E11.40 Type 2 diabetes mellitus with diabetic neuropathy, unspecified; E78.5 Hyperlipidemia, unspecified; F32.A Depression, unspecified; F41.9 Anxiety disorder, unspecified; H40.9 Unspecified glaucoma; Z96.41 Presence of insulin pump (external) (internal); I25.2 Old myocardial infarction; Z87.891 Personal history of nicotine dependence; Z79.899 Other long term (current) drug therapy; Z79.82 Long term (current) use of aspirin; Z86.73 Personal history of transient ischemic attack (TIA), and cerebral infarction without residual deficits; Z79.02 Long term (current) use of antithrombotics/antiplatelets; Z79.4 Long term (current) use of insulin; Z79.51 Long term (current) use of inhaled steroids; Z79.890 Hormone replacement therapy; Z91.81 History of falling
CPT/HCPCS: 71046; 80048; 80053; 80061; 82550; 82962; 83036; 83735; 83880; 84439; 84443; 84484; 85025; 85027; 85610; 85730; 93005; 93306; 94640; 97163; 97166; 97530